=== PATIENT | male | born 1955 | race Caucasian/White ===

== ENCOUNTER 2024-05-27 10:51 | Emergency (ER) | payer MEDICARE, SELFPAY ==
[2024-05-27] VITALS (52 sets, daily range): BP systolic 95–155; BP diastolic 71–122; PULSE 84–159; RESP 11–35; TEMP 36.7; O2SAT 93–98
--- NOTE | ~2024-05-27 | XR_ITS ---
EXAMINATION: XR chest 1V portable 05/27/2024 12:12 INDICATION: Rapid heart rate PROCEDURE: AP portable chest COMPARISON: 12/29/2018 FINDINGS: The lungs are clear. The cardiomediastinal silhouette is within normal limits. There are no pleural effusions. There is no pneumothorax suspected. IMPRESSION: 1: NO ACUTE CARDIOPULMONARY DISEASE. Reviewed, dictated and finalized at location B.
--- NOTE | 2024-05-27 10:55 | ECG_ITS ---
Test Date: 2024-05-27 11:04:59 Measurements Intervals [place] Rate: 155 P: 0 TN: 0 QRS: -39 QRSD: 125 T: 268 QT: 328 QTc: 527 Interpretive Statements ATRIAL FLUTTER/TACHYCARDIA WITH RAPID VENTRICULAR RESPONSE LEFT AXIS DEVIATION [QRS AXIS < -30] SEPTAL MYOCARDIAL INFARCTION , PROBABLY OLD [40+ ms Q WAVE IN V1/V2] No previous ECG available for comparison Electronically Signed On 05-27-2024 15:24:11 CDT by Juani Michaels M.D.
[2024-05-27 11:17] LABS: Basophils Absolute Auto 0.05 K/mm3 (0.00-0.10); Basophils Percent Auto 0.6 % (0.0-1.0); Eosinophils Absolute Auto 0.26 K/mm3 (0.02-0.50); Hematocrit 43.7 % (37.0-46.0); Hemoglobin 14.1 g/dL (12.4-15.3); Immature Granulocyte Absolute 0.03 K/mm3 (0.00-0.00); Immature Granulocyte Percent A 0.3 % (0.0-0.0); Lymphocytes Absolute Auto 1.54 K/mm3 (1.10-4.50); Lymphocytes Percent Auto 17.5 % (18.0-42.0); Mean Corpuscular HGB Conc 32.3 g/dL (32-36); Mean Corpuscular Hemoglobin 29.7 pg (27.0-31.0); Mean Corpuscular Volume 92.2 fL (78.0-102.0); Mean Platelet Volume 11.4 fl (8.7-11.0); Neutrophils Absolute Auto 6.22 K/mm3 (1.70-7.20); Neutrophils Percent Auto 70.6 % (50.0-70.0); Platelet Count Result 345 K/mm3 (150-420); Red Blood Count 4.74 M/mm3 (4.70-6.10); Red Cell Distribution Width 13.4 % (11.6-14.4); White Blood Count 8.8 K/mm3 (4.8-10.8)
[2024-05-27] MEDS: ADENOSINE IV SOLN 6 MG/2 ML VIAL IV PUSH (11:41)
[2024-05-27] MEDS: ADENOSINE IV SOLN 6 MG/2 ML VIAL 12 MG IV PUSH ×2 (11:50→12:03)
[2024-05-27 11:53] LABS: Alanine Aminotransferase 19 U/L (16-63); Albumin Level 3.1 g/dL (3.4-5.0); Alkaline Phosphatase 65 U/L (46-116); Anion Gap 10 mmol/L (4-12); Aspartate Amino Transferase 13 U/L (15-37); Bilirubin,Total 0.4 mg/dL (0.00-1.00); Blood Urea Nitrogen 26 mg/dL (7-18); Calcium 8.8 mg/dL (8.5-10.1); Carbon Dioxide 24 mmol/L (21-32); Chloride 107 mmol/L (98-108); Estimated CRCL calculation 56 ml/min; Estimated Glomerular Filt Rate 39; Glucose 150 mg/dL (70-99); Osmolality Calculated 299 mOsm/kg (285-295); Potassium 4.5 mmol/L (3.5-5.1); Sodium 141 mmol/L (136-145); Thyroid Stimulating Hormone 1.21 uIU/mL (0.36-3.74); Total Protein 7.2 g/dL (6.4-8.2); Troponin I 21.2 ng/L (0.00-60.4)
[2024-05-27 11:55] LABS: NT Pro B Type Natriuretic Pept 5778 pg/mL (0-125)
[2024-05-27] MEDS: dilTIAZem HCl INJ 25 MG/5 ML VIAL 10 MG IV PUSH (12:14)
[2024-05-27 12:37] LABS: INR 1.1; Partial Thromboplastin Time 30.3 Sec (23.9-30.70); Prothrombin Time 11.7 Seconds (9.50-12.1)
[2024-05-27] MEDS: dilTIAZem 100 MG/100 ML 100 MG/100 ML BAG IV CONT (12:48)
[2024-05-27] MEDS: APIXABAN 2.5 MG TABLET 5 MG PO (12:57)
--- NOTE | 2024-05-27 13:00 | ED.ARRPALP ---
HPI - Arrhythmia/Palpitations General Chief Complaint: Arrhythmia/Palpitations Stated Complaint: elevated heart rate Time Seen by Provider: 05/27/24 10:53 Source: patient Mode of arrival: ambulatory Limitations: no limitations History of Present Illness HPI narrative: this is a 68-year-old male with history of rapid heart rate, hypertension has had a off and on issues with some palpitations and rapid heart rate followed by his primary care physician that are high recently had increased his metoprolol. The patient with the last 2 to 3 days has felt has heart rate is elevated does have a way of monitoring his heart rate and has been in the 150s, and has been sustained and decided to present to the emergency department for further evaluation. Patient denies any chest pain no shortness of breath no fever chills no abdominal pain no dysuria or hematuria. Patient he has states that he had a normal catheterization in the past, last EKG per his recollection was months ago and no raise up her mention that he has AFib and flutter rhythm. Patient denies any nausea vomiting no headache no blurry vision. MD complaint: rapid heart beat Onset (ago): day(s) Duration: intermittent Severity: severe Context: occurred during rest Associated symptoms: denies other symptoms Treatments prior to arrival: beta-sanjuanita Related Data Home Medications Medication Instructions Recorded Confirmed polyethylene glycol 3350 17 17 g PO .QOD 02/10/24 05/27/24 gram/dose oral powder (Miralax) Allergies Allergy/AdvReac Type Severity Reaction Status Date / Time No Known Allergies Allergy Verified 04/16/24 09:23 Review of Systems Review of Systems: All systems reviewed & are unremarkable except as noted in HPI and below PMFSH Past Medical History Medical History Atrial flutter 12/20 Bladder stone removed 2010 Diverticulitis 01/21 History of left heart catheterization 02/19 Social History Social History Smoking status: Never smoker Second hand tobacco smoke exposure: No Alcohol intake: never Substance use: never Substance use type: does not use Living arrangements: with family Occupation/Education: retired Gender identity (if verbalized by the patient): Male Sexual Orientation (if Verbalized by the Patient): Straight or Heterosexual Spiritual care concerns: No Agree to blood products: Yes Exam Const: General: no acute distress Nutritional Appearance: obese Orientation/consciousness: patient oriented x3 Limitations: no limitations Neck: Neck: normal visual inspection and no lymphadenopathy Resp: Effort & Inspection: normal respiratory effort Auscultation: clear to auscultation bilaterally Cardio: Rate: regular rate Rhythm: regular rhythm GI: GI Palp: Yes Soft to palpation Auscultation: normal bowel sounds : General: Yes bladder normal to palpation Skin: General skin exam: normal color Rashes: no rashes Neuro: General: patient oriented x3, moves all extremities and no meningeal signs Extrem: General: normal to inspection and no clubbing, cyanosis or edema Psych: Mental Status: mental status grossly normal Course Course Emergency Course: Patient with a rapid ventricular rate with rate of 150s did receive adenosine x3 01/14/12, and Cardizem bolus of 10mg and currently on a Cardizem drip and this is controlling his heart rate is currently between 90s and are low 100s with stable blood pressure of 126/75 after careful review of his records does show that he had an episode of A flutter, but discussing this with the patient he does not recollect him ever being told that he has a flutter rhythm. Patient is currently only taking Plavix, he is not clear as to why he is taking the Plavix, patient states that he has had a cardiac catheterization a few years ago that was normal at that time. Patient
[2024-05-27 14:33] LABS: Troponin I 23.8 ng/L (0.00-60.4)
== END 2024-05-27 16:20 | disposition short-term general hospital (02) ==
PROVIDERS: Emergency Provider Emergency Medicine; PCP Family Medicine Adolescent Medicine
DX: I48.92 Unspecified atrial flutter (principal); I48.0 Paroxysmal atrial fibrillation
CPT/HCPCS: 36415; 71045; 80053; 83880; 84443; 84484; 85025; 85610; 85730; 93005; 96365; 96366; 96375; 99285; A9270; J0153

== ENCOUNTER 2024-05-27 18:33 | Inpatient (IN) | payer MEDICARE, SELFPAY ==
[2024-05-27] VITALS (7 sets, daily range): BP systolic 105–176; BP diastolic 43–70; PULSE 110–128; RESP 22; TEMP 36.4–37; O2SAT 97–100; BMI 40.8
--- NOTE | 2024-05-27 17:41 | ADMGEN ---
This patient, Roland Valenzuela, was admitted to IMU Room 213-01 on 05/27/24 at 1703. Patient/family oriented to hospital policies and general routines including ID bracelet, bed and alarms, visiting hours, pain management, procedures, bathroom and other care routines, personal items, smoking policy, room service/diet, and visiting hours. Information on how to activate the Rapid Response Team has been discussed. Patient/Family are encouraged to report perceived risks to care and to ask questions if they do not understand what they are told or what they should do.
[2024-05-27] MEDS: dilTIAZem 100 MG/100 ML 100 MG/100 ML BAG 7.5 MG IV CONT (19:00)
--- NOTE | 2024-05-27 20:11 | P.HP_ITS ---
H&P: HPI History of Present Illness Date/Time: 05/27/24 20:11 Chief Complaint: rapid heart rate and palpitations Narrative: This is a 68-year-old male with a significant past medical history hypertension, a flutter, diverticulitis, BPH who presented initially to [facility] with complaints of palpitations and rapid heart rate. Patient reports the following history of presenting illness. He states he noticed that he was feeling woozy on Friday and then started noticing that his heart rate was elevated as he has a pulse ox it he uses to read his heart rate. On Friday of this week he called his primary care doctor Dr. Victoria and let him know that his heart rate was not controlled any more with the metoprolol. Dr. Victoria increased his dose of metoprolol to 75 mg daily. He states he picked up this prescription and only took 1 dose before he presented here for further evaluation of his symptoms. He also denies history of a flutter even though it is documented in his EMR. Patient denies Any fever, chills, nausea, vomiting, diarrhea, abdominal pain, chest pain, shortness a breath. Workup in the hospital included chest x-ray which was negative for any acute cardiopulmonary disease. Initial labs shown a creatinine of 1.75, EGFR 39, proBNP 5778, troponin I 21.2> 23.8, TSH 1.21. EKG was completed and shown atrial flutter with RVR, left axis deviation with a rate of 150, QTC 527. Patient was given a few doses of adenosine, started on Cardizem infusion at 5 mg/hr and Eliquis 5 mg b.i.d.. Review of Systems Review of Systems: All systems reviewed & are unremarkable except as noted in HPI and below Constitutional: Constitutional: Reports as per HPI and Reports no additional constitutional complaints Eyes: Eyes: Reports as per HPI and Reports no additional eye complaints ENT: Reports system reviewed and no additional complaints, except as documented and Reports as per HPI Cardiovascular: Cardiovascular: Reports as per HPI and Reports no additional cardiovascular complaints Respiratory: Respiratory: Reports as per HPI and Reports no additional respiratory complaints Gastrointestinal: Gastrointestinal: Reports as per HPI and Reports no additional gastrointestinal complaints Genitourinary: Genitourinary: Reports no additional male genitourinary complaints and Reports as per HPI Musculoskeletal: Musculoskeletal: Reports no additional musculoskeletal complaints and Reports as per HPI Integumentary/Breasts: Skin/Breast: Reports system reviewed and no additional complaints, except as docu and Reports as per HPI Neurologic: Reports system reviewed and no additional complaints, except as documented and Reports as per HPI Psychiatric: Psychiatric: Reports no additional psychiatric complaints and Reports as per HPI [facility] Past Medical History Medical History (Updated 05/27/24 @ 23:51 by Mary Mckeon APRN) Atrial flutter 12/20 Bladder stone removed 2010 BPH (benign prostatic hyperplasia) Diverticulitis 01/21 History of left heart catheterization 02/19 Hypertension Family History Family History Daughter Bipolar 1 disorder Mother Cancer Social History Social History (Updated 05/27/24 @ 23:53 by Mary Mckeon APRN) Social History: lives with , retired medicinal chemist, worked as a medicinal chemist in a chemical plant in [facility] Smoking status: Never smoker Second hand tobacco smoke exposure: No Alcohol intake: never Substance use: never Substance use type: does not use Do You Feel Safe in your Home?: Yes Lack of Transportation: No Lack of Food: Never True Current Housing: I Have Housing Concerned About Future Housing: No Difficulty Paying Gas/Electric Bills: No Difficulty Paying for Meds: No Currently Unemployed: No Education: High School Diploma/GED Difficulty w/ Childcare or Family Care: No Living arrangements: with family Occupation/Education: retired Gender identity (if verbalized by the patient): Male Sexual Orientation (if Verbalized by the Patient): Straight or Heterosexual Spiritual care concerns: No Agree to blood products: Yes Meds Home Medications and Allergies Home Medications Medication Instructions Recorded Confirmed Type clopidogrel 75 mg tablet 75 mg PO DAILY #90 tabs 07/31/23 05/27/24 Rx lisinopril 40 mg tablet 40 mg PO DAILY #90 tabs 01/27/24 05/27/24 Rx polyethylene glycol 3350 17 17 g PO DAILY Constipation 02/10/24 05/27/24 History gram/dose oral powder (Miralax) tamsulosin 0.4 mg capsule 0.4 mg PO DAILY #90 caps 02/10/24 05/27/24 Rx metoprolol succinate 50 mg 75 mg PO DAILY #45 tabs 05/24/24 05/27/24 Rx tablet,extended release 24 hr omega-3 fatty acids 3,000 mg PO DAILY 05/27/24 05/27/24 History Allergies Allergy/AdvReac Type Severity Reaction Status Date / Time No Known Allergies Allergy Verified 04/16/24 09:23 Vital Signs Vital Signs - 24 hr 05/27/24 17:32 05/27/24 18:00 05/27/24 17:04 Temperature 98.6 F Pulse Rate 111 H 110 H Respiratory Rate Blood Pressure 148/69 H Pulse Oximetry 100 Oxygen Delivery Room Air 05/27/24 17:13 05/27/24 19:51 Temperature 97.6 F Pulse Rate 115 H 123 H Respiratory Rate 22 H Blood Pressure 176/70 H Pulse Oximetry 97 Oxygen Delivery Exam Narrative: General: In no acute distress, well nourished Head: atraumatic, no encephalopathy Eyes: PERRLA, sclera clear ENT: moist mucous membranes, nasal passages clear Neck: supple, no JVD, no adenopathy, trachea midline Cardiac: Normal S1 and S2. a flutter on heart monitor, No murmur, gallops or friction rubs, peripheral pulses intact. Respiratory: Lungs clear to auscultation, no adventitious lung sounds, currently on room air Gastrointestinal: soft, non-distended, non-tender, normoactive bowel sounds. : voiding without difficulty. Extremities: moves all extremities well, no edema, good ROM, strength 5/5 Skin: clean, dry, intact. No wounds or lesions. Neuro: Alert and oriented x4, cranial nerves intact, no neuro deficits. Psych: normal mood, normal affect, interactive Assessment and Plan Assessment and plan (1) Atrial flutter with rapid ventricular response: Code(s): I48.92 - Unspecified atrial flutter Status: Acute Assessment and Plan: - presented initially to [facility] with complaints palpitation and rapid heart rate. He was found to be in a flutter with RVR with a rate of 155 . Patient does have a history of a flutter in the EMR however he denies history of a flutter. * Metoprolol on hold * Cardizem infusion initiated and currently infusing at 7.5 milligram/hour * cardiology consulted * admitted to IMU status * continuous telemetry monitoring * troponin flat x2 * chest x-ray was negative for any acute cardiopulmonary disease * heart healthy diet (2) Essential (primary) hypertension: Code(s): I10 - Essential (primary) hypertension Status: Acute Assessment and Plan: * blood pressure ranging 122/78 to 176/70 * lisinopril on hold due to YESSICA * hydralazine ordered PRN for systolic greater than 160 (3) Benign prostatic hyperplasia with lower urinary tract symptoms: Code(s): N40.1 - Benign prostatic hyperplasia with lower urinary tract symptoms Status: Acute Assessment and Plan: * continue tamsulosin (4) Acute kidney injury: Code(s): N17.9 - Acute kidney failure, unspecified Status: Acute Assessment and Plan: * creatinine initially 1.75, EGFR 39 * baseline creatinine appears to be 1.15-1.17, EGFR >60 * continue to trend * hold nephrotoxic medications * lisinopril on hold Quality VTE Prophylaxis VTE prophylaxis: pharmacologic ordered Hospitalist MIPS Advance Care Plan I have confirmed that the patient's Advanced Care Plan is present, code status is documented, or surrogate decision maker is listed in patient medical record.: Yes Medication Reconciliation I have utilized all available resources to obtain, update and review the patients current medications (includes all prescriptions, OTC, herbals, cannabis, and nutritional supplements).: Yes
[2024-05-27] MEDS: APIXABAN 5 MG TABLET PO (23:06)
[2024-05-28] VITALS (22 sets, daily range): BP systolic 101–142; BP diastolic 43–95; PULSE 56–162; RESP 14–22; TEMP 36.3–37.3; O2SAT 94–98
[2024-05-28 05:07] LABS: Basophils Absolute Auto 0.1 K/mm3 (0.0-0.1); Basophils Percent Auto 0.6 % (0.2-1.2); Eosinophils Absolute Auto 0.3 K/mm3 (0-0.3); Hemoglobin 14.1 g/dL (14.0-18.0); Immature Granulocyte Absolute 0.04 K/mm3 (0.00-0.031); Immature Granulocyte Percent A 0.5 % (0-0.5); Lymphocytes Absolute Auto 1.75 K/mm3 (0.9-3.2); Lymphocytes Percent Auto 21.1 % (18.3-44.2); Mean Corpuscular HGB Conc 31.3 g/dl (32-36); Mean Corpuscular Hemoglobin 29.4 pg (26-34); Mean Corpuscular Volume 93.8 fl (80-100); Mean Platelet Volume 11.3 fl (7.4-10.4); Monocytes Absolute Auto 0.8 K/mm3 (0.1-0.6); Monocytes Percent Auto 9.8 % (2.6-8.5); Neutrophils Absolute Auto 5.3 K/mm3 (1.3-6.7); Platelet Count Result 323 k/mm3 (150-375); Red Cell Distribution Width 13.6 % (11.5-14.5); White Blood Count 8.3 K/mm3 (4.5-10.0)
[2024-05-28 05:18] LABS: Hemoglobin A1C 6.3 % (<5.7)
[2024-05-28 05:19] LABS: Alanine Aminotransferase 16 U/L (6-50); Albumin Level 3.9 g/dL (3.5-5.1); Alkaline Phosphatase 61 U/L (38-126); Anion Gap 9 mmol/L (4-12); Aspartate Amino Transferase 17 U/L (17-59); Bilirubin,Total 0.6 mg/dL (0.2-1.3); Blood Urea Nitrogen 23 mg/dL (9-20); Calcium 9.1 mg/dL (8.4-10.2); Carbon Dioxide 23 mmol/L (22-30); Chloride 107 mmol/L (98-107); Estimated CRCL calculation 65 ml/min; Estimated Glomerular Filt Rate 46; Glucose 109 mg/dL (65-110); Potassium 4.4 mmol/L (3.4-5.0); Sodium 139 mmol/L (137-145)
[2024-05-28] MEDS: dilTIAZem 100 MG/100 ML 100 MG/100 ML BAG 10 MG IV CONT (06:00)
[2024-05-28] MEDS: TAMSULOSIN HCL 0.4 MG CAPSULE PO (08:50)
[2024-05-28] MEDS: CLOPIDOGREL BISULFATE 75 MG TABLET PO (08:50)
[2024-05-28] MEDS: APIXABAN 5 MG TABLET PO ×2 (08:50→20:27)
--- NOTE | 2024-05-28 10:03 | P.PNIM_ITS ---
Progress Note: A&P Assessment and Plan (1) Atrial flutter with rapid ventricular response: Code(s): I48.92 - Unspecified atrial flutter Status: Inactive Assessment and Plan: - presented initially to [facility] with complaints palpitation and rapid heart rate. He was found to be in a flutter with RVR with a rate of 155 . Patient does have a history of a flutter in the EMR however he denies history of a flutter. * Metoprolol on hold * Cardizem infusion initiated and currently infusing at 7.5 milligram/hour * cardiology consulted and following records * admitted to IMU status * continuous telemetry monitoring * troponin flat x2 * chest x-ray was negative for any acute cardiopulmonary disease * heart healthy diet (2) Essential (primary) hypertension: Code(s): I10 - Essential (primary) hypertension Status: Acute Assessment and Plan: * blood pressure ranging 122/78 to 176/70 * lisinopril on hold due to YESSICA * hydralazine ordered PRN for systolic greater than 160 (3) Benign prostatic hyperplasia with lower urinary tract symptoms: Code(s): N40.1 - Benign prostatic hyperplasia with lower urinary tract symptoms Status: Acute Assessment and Plan: * continue tamsulosin (4) Acute kidney injury: Code(s): N17.9 - Acute kidney failure, unspecified Status: Acute Assessment and Plan: * creatinine initially 1.75, EGFR 39 * baseline creatinine appears to be 1.15-1.17, EGFR >60 * continue to trend * hold nephrotoxic medications * lisinopril on hold Subjective Date/time seen: 05/28/24 10:03 Interval history: Admitted for Atrial flutter, currently on Cardizem drip.Patient underwent cardiac catheterization 5 years ago but denies any significant finding . Denies any cardiac stent placement or CABG. When asked about why he is taking aspirin and Brilinta, patient reports his primary care physician advised him to take blood thinner which he does not want to take at the time and settled for Brilinta. Patient was yesterday started on Eliquis 5 mg p.o. b.i.d. during the admission and we believe it has been started due to his Ramón Vasc score of 3. Today we discontinued his Brilinta. Cardiology was consulted planning to do cardioversion if necessary. Review of Systems Review of Systems: All systems reviewed & are unremarkable except as noted in HPI and below Constitutional: Constitutional: Reports as per HPI and Reports no additional constitutional complaints Eyes: Eyes: Reports as per HPI and Reports no additional eye complaints ENT: Reports system reviewed and no additional complaints, except as documented and Reports as per HPI Cardiovascular: Cardiovascular: Reports as per HPI and Reports no additional cardiovascular complaints Respiratory: Respiratory: Reports as per HPI and Reports no additional respiratory complaints Gastrointestinal: Gastrointestinal: Reports as per HPI and Reports no additional gastrointestinal complaints Genitourinary: Genitourinary: Reports no additional male genitourinary complaints and Reports as per HPI Musculoskeletal: Musculoskeletal: Reports no additional musculoskeletal complaints and Reports as per HPI Integumentary/Breasts: Skin/Breast: Reports system reviewed and no additional complaints, except as docu and Reports as per HPI Neurologic: Reports system reviewed and no additional complaints, except as documented and Reports as per HPI Psychiatric: Psychiatric: Reports no additional psychiatric complaints and Rep orts as per HPI Exam Narrative: General: In no acute distress, well nourished Head: atraumatic, no encephalopathy Eyes: PERRLA, sclera clear ENT: moist mucous membranes, nasal passages clear Neck: supple, no JVD, no adenopathy, trachea midline Cardiac: Normal S1 and S2. a flutter on heart monitor, No murmur, gallops or friction rubs, peripheral pulses intact. Respiratory: Lungs clear to auscultation, no adventitious lung sounds, currently on room air Gastrointestinal: soft, non-distended, non-tender, normoactive bowel sounds. : voiding without difficulty. Extremities: moves all extremities well, no edema, good ROM, strength 5/5 Skin: clean, dry, intact. No wounds or lesions. Neuro: Alert and oriented x4, cranial nerves intact, no neuro deficits. Psych: normal mood, normal affect, interactive Objective Data Vital Signs Vital Signs: Vital Signs - 24 hr 05/27/24 17:32 05/27/24 18:00 05/27/24 17:04 Temperature 98.6 F Pulse Rate 111 H 110 H Respiratory Rate Blood Pressure 148/69 H Pulse Oximetry 100 Oxygen Delivery Room Air 05/27/24 17:13 05/27/24 19:51 05/27/24 20:00 Temperature 97.6 F Pulse Rate 115 H 123 H 117 H Respiratory Rate 22 H Blood Pressure 176/70 H Pulse Oximetry 97 Oxygen Delivery 05/27/24 20:00 05/27/24 22:00 05/27/24 19:00 Temperature Pulse Rate 117 H 125 H 128 H Respiratory Rate 22 H Blood Pressure Pulse Oximetry 97 Oxygen Delivery Room Air 05/28/24 00:17 05/28/24 00:00 05/28/24 00:00 Temperature 98.4 F Pulse Rate 101 H 124 H 124 H Respiratory Rate 22 H 22 H Blood Pressure 105/43 L Pulse Oximetry 98 98 Oxygen Delivery Room Air 05/27/24 22:00 05/28/24 00:00 05/28/24 02:00 Temperature Pulse Rate 125 H 124 H 82 Respiratory Rate Blood Pressure 105/43 L 106/45 L Pulse Oximetry Oxygen Delivery 05/28/24 02:00 05/28/24 02:00 05/28/24 04:00 Temperature 98.1 F Pulse Rate 82 82 82 Respiratory Rate 18 18 Blood Pressure 101/52 L 101/52 L 123/81 Pulse Oximetry 97 97 Oxygen Delivery 05/28/24 04:00 05/28/24 04:00 05/28/24 04:00 Temperature Pulse Rate 81 81 81 Respiratory Rate 18 Blood Pressure Pulse Oximetry 97 Oxygen Delivery Room Air 05/28/24 05:35 05/28/24 06:00 05/28/24 06:00 Temperature Pulse Rate 82 81 Respiratory Rate Blood Pressure 141/88 H Pulse Oximetry Oxygen Delivery 05/28/24 06:00 05/28/24 08:00 05/28/24 08:00 Temperature 98.7 F Pulse Rate 81 56 L 106 H Respiratory Rate 14 Blood Pressure 128/72 Pulse Oximetry 97 Oxygen Delivery 05/28/24 08:00 05/28/24 10:00 Temperature Pulse Rate 87 85 Respiratory Rate Blood Pressure Pulse Oximetry Oxygen Delivery Intake/Output Intake/Output: Intake & Output 05/25/24 05/26/24 05/27/24 05/28/24 23:59 23:59 23:59 23:59 Intake Total 22.5 355 Output Total 500 Balance 22.5 -145 Meds/Results Medications: Active Medications Generic Name Dose Route Start Last Admin Trade Name Freq PRN Reason Stop Dose Admin Acetaminophen 650 mg 05/27/24 17:48 Acetaminophen 325 Mg Tablet PO Q4H PRN Mild Pain (1-3) or Fever Apixaban 5 mg 05/27/24 21:00 05/28/24 08:50 Apixaban 5 Mg Tablet PO 5 mg Q12HR JAYLEN Administration Clopidogrel Bisulfate 75 mg 05/28/24 09:00 05/28/24 08:50 Clopidogrel Bisulfate 75 Mg Tablet PO 75 mg DAILY JAYLEN Administration Hydralazine HCl 10 mg 05/27/24 23:54 Hydralazine Hcl 20 Mg/Ml Vial IV PUSH Q8H PRN Blood Pressure - High Diltiazem HCl 100 mg in 100 mls @ 10 mls/hr 05/27/24 17:55 05/28/24 10:00 Cardizem 100 Mg/100 Ml IV CONT 10 mg/hr .Q10H JAYLEN 10 mls/hr Infusion 10 MG/HR Ondansetron HCl 4 mg 05/27/24 17:48 Ondansetron Inj 4 Mg/2 Ml Vial IV PUSH Q6H PRN Nausea And Vomiting Polyethylene Glycol 17 gm 05/28/24 09:00 05/28/24 08:51 Polyethylene Glycol 3350 17 Gm Powd.Pack PO Not Given DAILY [facility] Tamsulosin HCl 0.4 mg 05/28/24 09:00 05/28/24 08:50 Tamsulosin Hcl 0.4 Mg Capsule PO 0.4 mg DAILY JAYLEN Administration Labs Labs: Laboratory Results - last 24 hr 05/28/24 04:45 WBC 8.3 RBC 4.80 Hgb 14.1 Hct 45.0 MCV 93.8 MCH 29.4 MCHC 31.3 L RDW 13.6 Plt Count 323 MPV 11.3 H Immature Gran % (Auto) 0.5 Neut % (Auto) 64.0 Lymph % (Auto) 21.1 [place] % (Auto) 9.8 H Eos % (Auto) 4.0 Baso % (Auto) 0.6 Lymph # (Auto) 1.75 [place] # (Auto) 0.8 H Eos # (Auto) 0.3 Baso # (Auto) 0.1 Abs Immat Gran (auto) 0.04 H Absolute Neuts (auto) 5.3 Absolute Nucleated RBC 0.000 Nucleated RBC % 0.0 Sodium 139 Potassium 4.4 Chloride 107 Carbon Dioxide 23 Anion Gap 9 BUN 23 H Creatinine 1.50 H Estim Creat Clear Calc 65 Estimated GFR 46 L Glucose 109 Hemoglobin A1c 6.3 H Calcium 9.1 Total Bilirubin 0.6 AST 17 ALT 16 Alkaline Phosphatase 61 Total Protein 7.0 Albumin 3.9 Quality VTE Prophylaxis VTE prophylaxis: pharmacologic ordered Hospitalist MIPS Advance Care Plan I have confirmed that the patient's Advanced Care Plan is present, code status is documented, or surrogate decision maker is listed in patient medical record.: Yes Medication Reconciliation I have utilized all available resources to obtain, update and review the patients current medications (includes all prescriptions, OTC, herbals, cannabis, and nutritional supplements).: Yes
--- NOTE | 2024-05-28 10:13 | P.CONCA_ITS ---
Assessment and Plan Assessment and plan (1) Paroxysmal atrial fibrillation: Code(s): I48.0 - Paroxysmal atrial fibrillation Status: Acute Assessment and Plan: This is not a new diagnosis, patient reports being diagnosed ~10 years ago, but his record indicates he was diagnosed in 2019. Unclear if he has been rate controlled or if he has been in sinus rhythm. No previous EKGs available for review. * Will attempt to restore sinus rhythm with HARMEET/DCCV with anesthesia hopefully today * Check apnea link if he remains admitted overnight * Continue diltiazem for now * If DCCV attempt is not successful, we will discuss plan for rate control * Continue anticoagulation with Eliquis 5mg b.i.d. (2) Essential (primary) hypertension: Code(s): I10 - Essential (primary) hypertension Status: Acute Assessment and Plan: Stable. Continue lisinopril History of Present Illness History of Present Illness Consult date/time: 05/28/24 10:13 Requesting physician: Mary Mckeon APRN Consult reason: atrial fibrillation Reason For Visit: A flutter with RVR Narrative: Roland Valenzuela is a 68 year old male with atrial flutter who presented to the hospital because he noted his heart rate to be elevated on his home pulse oximeter. He was instructed by his primary care doctor to take an additional dose of metoprolol and proceed to the emergency department. He states he was initially diagnosed with atrial flutter ~10 years ago but cannot remember exactly when. At that time, a cardioversion was planned but for reasons he is unsure of, he did not undergo cardioversion and was managed with medication instead. He does not know if he spontaneously converted or if he has been rate controlled. He does not feel symptoms with the tachycardia but he does report feeling funny for about a week. 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 [facility] Smoking status: Never smoker Second hand tobacco smoke exposure: No Alcohol intake: never Substance use: never Substance use type: does not use Do You Feel Safe in your Home?: Yes Lack of Transportation: No Lack of Food: Never True Current Housing: I Have Housing Concerned About Future Housing: No Difficulty Paying Gas/Electric Bills: No Difficulty Paying for Meds: No Currently Unemployed: No Education: High School Diploma/GED Difficulty w/ Childcare or Family Care: No Living arrangements: with family Occupation/Education: retired Gender identity (if verbalized by the patient): Male Sexual Orientation (if Verbalized by the Patient): Straight or Heterosexual Spiritual care concerns: No Agree to blood products: Yes Meds Home Medications and Allergies Home Medications Medication Instructions Recorded Confirmed Type clopidogrel 75 mg tablet 75 mg PO DAILY #90 tabs 07/31/23 05/27/24 Rx lisinopril 40 mg tablet 40 mg PO DAILY #90 tabs 01/27/24 05/27/24 Rx polyethylene glycol 3350 17 17 g PO DAILY Constipation 02/10/24 05/27/24 History gram/dose oral powder (Miralax) tamsulosin 0.4 mg capsule 0.4 mg PO DAILY #90 caps 02/10/24 05/27/24 Rx metoprolol succinate 50 mg 75 mg PO DAILY #45 tabs 05/24/24 05/27/24 Rx tablet,extended release 24 hr omega-3 fatty acids 3,000 mg PO DAILY 05/27/24 05/27/24 History Allergies Allergy/AdvReac Type Severity Reaction Status Date / Time No Known Allergies Allergy Verified 04/16/24 09:23 Vital Signs Vital Signs - 24 hr 05/27/24 17:32 05/27/24 18:00 05/27/24 17:04 Temperature 37.0 C Pulse Rate 111 H 110 H Respiratory Rate Blood Pressure 148/69 H Pulse Oximetry 100 Oxygen Delivery Room Air 05/27/24 17:13 05/27/24 19:51 05/27/24 20:00 Temperature 36.4 C Pulse Rate 115 H 123 H 117 H Respiratory Rate 22 H Blood Pressure 176/70 H Pulse Oximetry 97 Oxygen Delivery 05/27/24 20:00 05/27/24 22:00 05/27/24 19:00 Temperature Pulse Rate 117 H 125 H 128 H Respiratory Rate 22 H Blood Pressure Pulse Oximetry 97 Oxygen Delivery Room Air 05/28/24 00:17 05/28/24 00:00 05/28/24 00:00 Temperature 36.9 C Pulse Rate 101 H 124 H 124 H Respiratory Rate 22 H 22 H Blood Pressure 105/43 L Pulse Oximetry 98 98 Oxygen Delivery Room Air 05/27/24 22:00 05/28/24 00:00 05/28/24 02:00 Temperature Pulse Rate 125 H 124 H 82 Respiratory Rate Blood Pressure 105/43 L 106/45 L Pulse Oximetry Oxygen Delivery 05/28/24 02:00 05/28/24 02:00 05/28/24 04:00 Temperature 36.7 C Pulse Rate 82 82 82 Respiratory Rate 18 18 Blood Pressure 101/52 L 101/52 L 123/81 Pulse Oximetry 97 97 Oxygen Delivery 05/28/24 04:00 05/28/24 04:00 05/28/24 04:00 Temperature Pulse Rate 81 81 81 Respiratory Rate 18 Blood Pressure Pulse Oximetry 97 Oxygen Delivery Room Air 05/28/24 05:35 05/28/24 06:00 05/28/24 06:00 Temperature Pulse Rate 82 81 Respiratory Rate Blood Pressure 141/88 H Pulse Oximetry Oxygen Delivery 05/28/24 06:00 05/28/24 08:00 05/28/24 08:00 Temperature 37.1 C Pulse Rate 81 56 L 106 H Respiratory Rate 14 Blood Pressure 128/72 Pulse Oximetry 97 Oxygen Delivery 05/28/24 08:00 05/28/24 10:00 05/28/24 10:00 Temperature 36.8 C Pulse Rate 87 85 56 L Respiratory Rate 18 Blood Pressure 142/90 H Pulse Oximetry 98 Oxygen Delivery Exam Const: General: comfortable, no acute distress, alert and awake Orientation/consciousness: patient oriented x3 Other: Morbidly obese HENMT: Head: normal to inspection Eyes: General: appearance normal, both eyes and all related structures Pupils: Equal, round and reactive pupils present Neck: Neck: normal visual inspection and supple Carotids: normal carotid upstroke Resp: Effort & Inspection: normal respiratory effort Auscultation: clear to auscultation bilaterally Cardio: Rate: tachycardic Rhythm: abnormal rhythm Heart sounds: S1 normal heart sound present, S2 normal heart sound present and no murmurs GI: Auscultation: normal bowel sounds Skin: General skin exam: normal color Neuro: General: patient oriented x3 Cranial nerves: Yes Equal, round and reactive pupils present Extrem: General: normal to inspection Psych: Appearance: grossly normal Mental Status: mental status grossly n ormal Results Labs and Meds 05/28/24 04:45 05/28/24 04:45 Lab results: Cardiac Enzymes 05/28/24 Range/Units 04:45 AST 17 (17-59) U/L CBC 05/28/24 Range/Units 04:45 WBC 8.3 (4.5-10.0) K/mm3 RBC 4.80 (4.6-6.20) M/mm3 Hgb 14.1 (14.0-18.0) g/dL Hct 45.0 (42.0-52.0) % Plt Count 323 (150-375) k/mm3 Lymph # (Auto) 1.75 (0.9-3.2) K/mm3 [place] # (Auto) 0.8 H (0.1-0.6) K/mm3 Eos # (Auto) 0.3 (0-0.3) K/mm3 Baso # (Auto) 0.1 (0.0-0.1) K/mm3 Comprehensive Metabolic Panel 05/28/24 Range/Units 04:45 Sodium 139 (137-145) mmol/L Potassium 4.4 (3.4-5.0) mmol/L Chloride 107 (98-107) mmol/L Carbon Dioxide 23 (22-30) mmol/L BUN 23 H (9-20) mg/dL Creatinine 1.50 H (0.7-1.3) mg/dL Glucose 109 (65-110) mg/dL Calcium 9.1 (8.4-10.2) mg/dL AST 17 (17-59) U/L ALT 16 (6-50) U/L Alkaline Phosphatase 61 (38-126) U/L Total Protein 7.0 (6.3-8.2) g/dL Albumin 3.9 (3.5-5.1) g/dL Intake and Output 05/27/24 05/28/24 05/28/24 23:59 07:59 15:59 Intake Total 22.5 315 40 Output Total 500 Balance 22.5 -185 40 Intake: IV 22.5 75 40 dilTIAZem 100 MG/100 ML 100 mg 22.5 75 40 In 100 ml @ 10 MG/HR 10 mls/hr IV CONT .Q10H [facility] Rx#:[id number] Oral 240 Output: Urine 500 Patient Weight 05/28/24 23:59 Weight 150.6 kg
[2024-05-28] MEDS: METOPROLOL TARTRATE 25 MG TABLET PO ×3 (12:34→22:23)
[2024-05-28] MEDS: SODIUM CHLORIDE 0.9% IV 1,000 ML 60 ML IV CONT (13:30)
[2024-05-28] MEDS: dilTIAZem 100 MG/100 ML 100 MG/100 ML BAG 15 MG IV CONT (16:38)
[2024-05-28] MEDS: ACETAMINOPHEN 325 MG TABLET 650 MG PO (23:09)
--- NOTE | 2024-05-28 23:54 | PC.NURSE ---
IV access lost and attempted reinsertion twice by this RN and 2 times by Kane RN with ultrasound and 2 times by MARIA DOLORES Christie. Unable to regain PIV access. Cardizem drip and fluids placed on hold. Dr. Steel paged at 2330 and awaiting response at this time. Patient heart rate 150 and patient asymptomatic. Will continue to monitor.
[2024-05-29] VITALS (24 sets, daily range): BP systolic 95–153; BP diastolic 50–93; PULSE 55–157; RESP 12–20; TEMP 36.3–37.2; O2SAT 95–99
--- NOTE | 2024-05-29 00:20 | PC.NURSE ---
Dr. Steel returned phone call at 0018. Updated of patient condition and heart rate in the 140's and loss of PIV access. No new orders at this time. Will reevaluate in AM and continue to monitor for now.
[2024-05-29] MEDS: METOPROLOL TARTRATE 25 MG TABLET PO ×4 (05:40→23:00)
[2024-05-29 06:03] LABS: Basophils Absolute Auto 0.1 K/mm3 (0.0-0.1); Basophils Percent Auto 0.5 % (0.2-1.2); Eosinophils Absolute Auto 0.3 K/mm3 (0-0.3); Hematocrit 43.9 % (42.0-52.0); Immature Granulocyte Absolute 0.04 K/mm3 (0.00-0.031); Immature Granulocyte Percent A 0.4 % (0-0.5); Lymphocytes Absolute Auto 1.89 K/mm3 (0.9-3.2); Lymphocytes Percent Auto 18.9 % (18.3-44.2); Mean Corpuscular HGB Conc 31.9 g/dl (32-36); Mean Corpuscular Volume 94.2 fl (80-100); Mean Platelet Volume 11.1 fl (7.4-10.4); Monocytes Absolute Auto 1.2 K/mm3 (0.1-0.6); Monocytes Percent Auto 11.7 % (2.6-8.5); Neutrophils Absolute Auto 6.5 K/mm3 (1.3-6.7); Neutrophils Percent Auto 65.5 % (45.5-73.1); Platelet Count Result 310 k/mm3 (150-375); Red Blood Count 4.66 M/mm3 (4.6-6.20); Red Cell Distribution Width 13.6 % (11.5-14.5)
[2024-05-29 06:14] LABS: Alanine Aminotransferase 15 U/L (6-50); Albumin Level 3.9 g/dL (3.5-5.1); Alkaline Phosphatase 59 U/L (38-126); Anion Gap 11 mmol/L (4-12); Aspartate Amino Transferase 16 U/L (17-59); Bilirubin,Total 1.2 mg/dL (0.2-1.3); Blood Urea Nitrogen 21 mg/dL (9-20); Calcium 8.6 mg/dL (8.4-10.2); Carbon Dioxide 22 mmol/L (22-30); Chloride 107 mmol/L (98-107); Estimated CRCL calculation 69 ml/min; Estimated Glomerular Filt Rate 50; Glucose 117 mg/dL (65-110); Potassium 4.4 mmol/L (3.4-5.0); Sodium 140 mmol/L (137-145)
[2024-05-29] MEDS: CLOPIDOGREL BISULFATE 75 MG TABLET PO (09:01)
[2024-05-29] MEDS: TAMSULOSIN HCL 0.4 MG CAPSULE PO (09:02)
[2024-05-29] MEDS: APIXABAN 5 MG TABLET PO ×2 (09:02→20:19)
--- NOTE | 2024-05-29 10:26 | P.PNIM_ITS ---
Progress Note: A&P Assessment and Plan (1) Atrial flutter with rapid ventricular response: Code(s): I48.92 - Unspecified atrial flutter Status: Inactive Assessment and Plan: - presented initially to [facility] with complaints palpitation and rapid heart rate. He was found to be in a flutter with RVR with a rate of 155 . Patient does have a history of a flutter in the EMR however he denies history of a flutter. * Metoprolol on hold * Cardizem infusion initiated and currently infusing at 7.5 milligram/hour * cardiology consulted * continuous telemetry monitoring * troponin flat x2 * chest x-ray was negative for any acute cardiopulmonary disease * heart healthy diet * Plan HARMEET cardioversion 10/01 (2) Essential (primary) hypertension: Code(s): I10 - Essential (primary) hypertension Status: Acute Assessment and Plan: * 05/29 BP 95/61 (3) Benign prostatic hyperplasia with lower urinary tract symptoms: Code(s): N40.1 - Benign prostatic hyperplasia with lower urinary tract symptoms Status: Acute Assessment and Plan: * continue tamsulosin (4) Acute kidney injury: Code(s): N17.9 - Acute kidney failure, unspecified Status: Acute Assessment and Plan: * admission creatinine initially 1.75, EGFR 39 * baseline creatinine appears to be 1.15-1.17, EGFR >60 * continue to trend * hold nephrotoxic medications * lisinopril on hold * 05/29 creatinine 1.4 Subjective Date/time seen: 05/29/24 10:26 Interval history: Denied chest pain or shortness of breath or swelling. Denied GI or issues. Denied abnormal bleeding. Denied palpitations or dizziness. Denied focal weakness. Tolerating diet. Review of Systems Review of Systems: All systems reviewed & are unremarkable except as noted in HPI and below Exam Narrative: HEENT: EOMI, sclerae nonicteric, pharyngeal mucosa pink and intact NECK: No JV CHEST: Clear to auscultation. Normal effort. HEART: NL S1/S2, irregularly irregular rhythm, mildly tachycardic. ABDOMEN: BS+, soft, nontender, no mass, no bruits EXTREMITIES: No cyanosis, edema, or clubbing NEUROLOGIC: CN intact and symmetric to inspection. MUSCULOSKELETAL: Tone and strength symmetric. PSYCH: Alert. Oriented to person, place, and time. Objective Data Vital Signs Vital Signs: Vital Signs - 24 hr 05/28/24 12:00 05/28/24 12:34 05/28/24 14:00 Temperature 98.9 F 97.4 F L Pulse Rate 95 111 H 162 H Respiratory Rate 16 18 Blood Pressure 115/81 115/95 H Pulse Oximetry 98 98 Oxygen Delivery 05/28/24 14:37 05/28/24 15:56 05/28/24 12:00 Temperature 98.2 F Pulse Rate 162 H 103 H Respiratory Rate 18 18 Blood Pressure 115/95 H 138/68 Pulse Oximetry 98 94 Oxygen Delivery Room Air Room Air 05/28/24 12:00 05/28/24 14:00 05/28/24 16:38 Temperature Pulse Rate 114 H 98 117 H Respiratory Rate Blood Pressure Pulse Oximetry Oxygen Delivery 05/28/24 16:38 05/28/24 16:38 05/28/24 16:00 Temperature Pulse Rate 132 H 117 H 122 H Respiratory Rate Blood Pressure Pulse Oximetry Oxygen Delivery 05/28/24 16:00 05/28/24 18:00 05/28/24 19:53 Temperature 99.1 F Pulse Rate 86 84 Respiratory Rate 20 Blood Pressure 112/64 Pulse Oximetry 97 Oxygen Delivery Room Air 05/28/24 20:30 05/28/24 20:30 05/28/24 22:22 Temperature Pulse Rate 84 86 113 H Respiratory Rate 20 Blood Pressure 112/64 Pulse Oximetry 97 Oxygen Delivery Room Air 05/28/24 22:23 05/28/24 20:00 05/28/24 22:00 Temperature Pulse Rate 113 H 82 156 H Respiratory Rate Blood Pressure Pulse Oximetry Oxygen Delivery 05/28/24 20:30 05/29/24 00:00 05/29/24 00:00 Temperature 99 F Pulse Rate 157 H 148 H Respiratory Rate 20 Blood Pressure 108/88 Pulse Oximetry 97 97 Oxygen Delivery Room Air 05/29/24 00:00 05/29/24 02:00 05/29/24 04:00 Temperature Pulse Rate 149 H 148 H 148 H Respiratory Rate 20 Blood Pressure Pulse Oximetry 97 Oxygen Delivery Room Air 05/29/24 04:00 05/29/24 02:00 05/29/24 04:00 Temperature Pulse Rate 154 H 150 H 154 H Respiratory Rate Blood Pressure Pulse Oximetry Oxygen Delivery 05/29/24 05:40 05/29/24 06:00 05/29/24 06:00 Temperature Pulse Rate 146 H 154 H 153 H Respiratory Rate Blood Pressure Pulse Oximetry Oxygen Delivery 05/29/24 04:00 05/29/24 06:57 05/29/24 08:00 Temperature 97.4 F L Pulse Rate 153 H 155 H 154 H Respiratory Rate 18 Blood Pressure 106/55 L 106/55 L Pulse Oximetry 98 Oxygen Delivery 05/29/24 08:00 Temperature 97.9 F Pulse Rate 157 H Respiratory Rate 12 Blood Pressure 95/61 L Pulse Oximetry 96 Oxygen Delivery Intake/Output Intake/Output: Intake & Output 05/26/24 05/27/24 05/28/24 05/29/24 23:59 23:59 23:59 23:59 Intake Total 22.5 1924 400 Output Total 225 1900 900 Balance -202.5 24 -500 Meds/Results Medications: Active Medications Generic Name Dose Route Start Last Admin Trade Name Freq PRN Reason Stop Dose Admin Acetaminophen 650 mg 05/27/24 17:48 05/28/24 23:09 Acetaminophen 325 Mg Tablet PO 650 mg Q4H PRN Administration Mild Pain (1-3) or Fever Apixaban 5 mg 05/27/24 21:00 05/29/24 09:02 Apixaban 5 Mg Tablet PO 5 mg Q12HR JAYLEN Administration Clopidogrel Bisulfate 75 mg 05/28/24 09:00 05/29/24 09:01 Clopidogrel Bisulfate 75 Mg Tablet PO 75 mg DAILY JAYLEN Administration Hydralazine HCl 10 mg 05/27/24 23:54 Hydralazine Hcl 20 Mg/Ml Vial IV PUSH Q8H PRN Blood Pressure - High Diltiazem HCl 100 mg in 100 mls @ 15 mls/hr 05/27/24 17:55 05/29/24 06:57 Cardizem 100 Mg/100 Ml IV CONT 15 mg/hr .Q6H40M JAYLEN 15 mls/hr Infusion 15 MG/HR Sodium Chloride 1,000 mls @ 60 mls/hr 05/28/24 11:30 05/29/24 06:57 Normal Saline Iv IV CONT 60 mls/hr .[id number] JAYLEN Infusion Metoprolol Tartrate 25 mg 05/28/24 11:00 05/29/24 05:40 Metoprolol Tartrate 25 Mg Tablet PO 25 mg Q6H JAYLEN Administration Metoprolol Tartrate 5 mg 05/28/24 15:27 Metoprolol Tartrate Inj 5 Mg/5 Ml Vial IV PUSH Q2H PRN Tachycardia Ondansetron HCl 4 mg 05/27/24 17:48 Ondansetron Inj 4 Mg/2 Ml Vial IV PUSH Q6H PRN Nausea And Vomiting Polyethylene Glycol 17 gm 05/28/24 09:00 05/29/24 09:04 Polyethylene Glycol 3350 17 Gm Powd.Pack PO Not Given DAILY [facility] Tamsulosin HCl 0.4 mg 05/28/24 09:00 05/29/24 09:02 Tamsulosin Hcl 0.4 Mg Capsule PO 0.4 mg DAILY JAYLEN Administration Labs Labs: Laboratory Results - last 24 hr 05/29/24 05:58 WBC 10.0 RBC 4.66 Hgb 14.0 Hct 43.9 MCV 94.2 MCH 30.0 MCHC 31.9 L RDW 13.6 Plt Count 310 MPV 11.1 H Immature Gran % (Auto) 0.4 Neut % (Auto) 65.5 Lymph % (Auto) 18.9 [place] % (Auto) 11.7 H Eos % (Auto) 3.0 Baso % (Auto) 0.5 Lymph # (Auto) 1.89 [place] # (Auto) 1.2 H Eos # (Auto) 0.3 Baso # (Auto) 0.1 Abs Immat Gran (auto) 0.04 H Absolute Neuts (auto) 6.5 Absolute Nucleated RBC 0.000 Nucleated RBC % 0.0 Sodium 140 Potassium 4.4 Chloride 107 Carbon Dioxide 22 Anion Gap 11 BUN 21 H Creatinine 1.40 H Estim Creat Clear Calc 69 Estimated GFR 50 L Glucose 117 H Calcium 8.6 Total Bilirubin 1.2 AST 16 L ALT 15 Alkaline Phosphatase 59 Total Protein 7.0 Albumin 3.9
[2024-05-29] MEDS: dilTIAZem 100 MG/100 ML 100 MG/100 ML BAG 15 MG IV CONT ×3 (10:37→20:19)
--- NOTE | 2024-05-29 11:40 | P.PNCA_ITS ---
Progress Note: A&P Assessment and Plan (1) Paroxysmal atrial fibrillation: Code(s): I48.0 - Paroxysmal atrial fibrillation Status: Acute Assessment and Plan: He is in atrial flutter with variable response. Heart rate now controlled with diltiazem and metoprolol. Being anticoagulated with Eliquis and this should be continued. This is not a new diagnosis, patient reports being diagnosed ~10 years ago, but his record indicates he was diagnosed in 2019. Unclear if he has been rate controlled or if he has been in sinus rhythm. No previous EKGs available for review. * Will attempt to restore sinus rhythm with HARMEET/DCCV on Friday * * Continue diltiazem for now * If DCCV attempt is not successful, we will discuss plan for rate control * Continue anticoagulation with Eliquis 5mg b.i.d. (2) Essential (primary) hypertension: Code(s): I10 - Essential (primary) hypertension Status: Acute Assessment and Plan: Stable. 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 Has a chads Vasc score of at least 2 given age and hypertension (4) Acute kidney injury: Code(s): N17.9 - Acute kidney failure, unspecified Status: Acute Assessment and Plan: Per hospitalist Subjective Date/time seen: 05/29/24 11:40 Interval history: 68-year-old admitted for tachycardia. Date of service 05/29/2024: His IV infiltrated last night. Several hours without an IV. During that time he was tachycardic but tolerated it well. Now has an IV again in diltiazem drip reinstituted. Heart rate is much better controlled. Otherwise feels fine and denies any chest pain or shortness of breath. Review of Systems Review of Systems: All systems reviewed & are unremarkable except as noted in HPI and below Constitutional: Constitutional: Denies chills Eyes: Eyes: Denies blurry vision ENT: Reports Normal hearing present Cardiovascular: Cardiovascular: Denies chest pain and Denies diaphoresis Respiratory: Respiratory: Denies dyspnea Gastrointestinal: Gastrointestinal: Denies abdominal pain Genitourinary: Genitourinary: Denies hematuria Musculoskeletal: Musculoskeletal: Denies back pain Integumentary/Breasts: Skin/Breast: Denies dry skin Neurologic: Denies Abnormal speech present Psychiatric: Psychiatric: Denies anxiety Endocrine: Endocrine: Denies change in body appearance Hematologic/Lymphatic: Hematologic/Lymphatic: Denies easy bleeding Allergic/Immunologic: Allergic/Immunologic: Denies GI upset with certain foods Exam Narrative: Appears stated age Const: General: comfortable, no acute distress, alert and awake Other: Morbidly obese HENMT: Head: normal to inspection Face/Nose/Sinus: Normal nares present Eyes: General: appearance normal, both eyes and all related structures Sclera: sclerae normal Neck: Neck: normal visual inspection and supple Carotids: normal carotid upstroke Resp: Effort & Inspection: normal respiratory effort Auscultation: clear to auscultation bilaterally Cardio: Rate: tachycardic Rhythm: abnormal rhythm Heart sounds: S1 normal heart sound present, S2 normal heart sound present and no murmurs GI: Auscultation: normal bowel sounds Skin: General skin exam: normal color Neuro: General: patient oriented x3 Speech: normal speech Extrem: General: normal to inspection Psych: Appearance: grossly normal Mental Status: mental status grossly normal Objective Data Vital Signs Vital Signs: Vital Signs - 24 hr 05/28/24 12:00 05/28/24 12:34 05/28/24 14:00 Temperature 37.2 C 36.3 C L Pulse Rate 95 111 H 162 H Respiratory Rate 16 18 Blood Pressure 115/81 115/95 H Pulse Oximetry 98 98 Oxygen Delivery 05/28/24 14:37 05/28/24 15:56 05/28/24 12:00 Temperature 36.8 C Pulse Rate 162 H 103 H Respiratory Rate 18 18 Blood Pressure 115/95 H 138/68 Pulse Oximetry 98 94 Oxygen Delivery Room Air Room Air 05/28/24 12:00 05/28/24 14:00 05/28/24 16:38 Temperature Pulse Rate 114 H 98 117 H Respiratory Rate Blood Pressure Pulse Oximetry Oxygen Delivery 05/28/24 16:38 05/28/24 16:38 05/28/24 16:00 Temperature Pulse Rate 132 H 117 H 122 H Respiratory Rate Blood Pressure Pulse Oximetry Oxygen Delivery 05/28/24 16:00 05/28/24 18:00 05/28/24 19:53 Temperature 37.3 C Pulse Rate 86 84 Respiratory Rate 20 Blood Pressure 112/64 Pulse Oximetry 97 Oxygen Delivery Room Air 05/28/24 20:30 05/28/24 20:30 05/28/24 22:22 Temperature Pulse Rate 84 86 113 H Respiratory Rate 20 Blood Pressure 112/64 Pulse Oximetry 97 Oxygen Delivery Room Air 05/28/24 22:23 05/28/24 20:00 05/28/24 22:00 Temperature Pulse Rate 113 H 82 156 H Respiratory Rate Blood Pressure Pulse Oximetry Oxygen Delivery 05/28/24 20:30 05/29/24 00:00 05/29/24 00:00 Temperature 37.2 C Pulse Rate 157 H 148 H Respiratory Rate 20 Blood Pressure 108/88 Pulse Oximetry 97 97 Oxygen Delivery Room Air 05/29/24 00:00 05/29/24 02:00 05/29/24 04:00 Temperature Pulse Rate 149 H 148 H 148 H Respiratory Rate 20 Blood Pressure Pulse Oximetry 97 Oxygen Delivery Room Air 05/29/24 04:00 05/29/24 02:00 05/29/24 04:00 Temperature Pulse Rate 154 H 150 H 154 H Respiratory Rate Blood Pressure Pulse Oximetry Oxygen Delivery 05/29/24 05:40 05/29/24 06:00 05/29/24 06:00 Temperature Pulse Rate 146 H 154 H 153 H Respiratory Rate Blood Pressure Pulse Oximetry Oxygen Delivery 05/29/24 04:00 05/29/24 06:57 05/29/24 08:00 Temperature 36.3 C L Pulse Rate 153 H 155 H 154 H Respiratory Rate 18 Blood Pressure 106/55 L 106/55 L Pulse Oximetry 98 Oxygen Delivery 05/29/24 08:00 05/29/24 09:45 05/29/24 10:37 Temperature 36.6 C Pulse Rate 157 H 80 94 Respiratory Rate 12 Blood Pressure 95/61 L 115/60 115/60 Pulse Oximetry 96 Oxygen Delivery 05/29/24 08:00 05/29/24 10:57 Temperature Pulse Rate 157 H 82 Respiratory Rate Blood Pressure Pulse Oximetry Oxygen Delivery Intake/Output Intake/Output: Intake & Output 05/26/24 05/27/24 05/28/24 05/29/24 23:59 23:59 23:59 23:59 Intake Total 22.5 1924 442.0 Output Total 225 1900 900 Balance -202.5 24 -458.0 Meds/Results Medications: Active Medications Generic Name Dose Route Start Last Admin Trade Name Freq PRN Reason Stop Dose Admin Acetaminophen 650 mg 05/27/24 17:48 05/28/24 23:09 Acetaminophen 325 Mg Tablet PO 650 mg Q4H PRN Administration Mild Pain (1-3) or Fever Apixaban 5 mg 05/27/24 21:00 05/29/24 09:02 Apixaban 5 Mg Tablet PO 5 mg Q12HR JAYLEN Administration Clopidogrel Bisulfate 75 mg 05/28/24 09:00 05/29/24 09:01 Clopidogrel Bisulfate 75 Mg Tablet PO 75 mg DAILY JAYLEN Administration Hydralazine HCl 10 mg 05/27/24 23:54 Hydralazine Hcl 20 Mg/Ml Vial IV PUSH Q8H PRN Blood Pressure - High Diltiazem HCl 100 mg in 100 mls @ 15 mls/hr 05/27/24 17:55 05/29/24 10:37 Cardizem 100 Mg/100 Ml IV CONT 15 mg/hr .Q6H40M JAYLEN 15 mls/hr Administration 15 MG/HR Sodium Chloride 1,000 mls @ 60 mls/hr 05/28/24 11:30 05/29/24 06:57 Normal Saline Iv IV CONT 60 mls/hr .[id number] JAYLEN Infusion Metoprolol Tartrate 25 mg 05/28/24 11:00 05/29/24 10:57 Metoprolol Tartrate 25 Mg Tablet PO 25 mg Q6H JAYLEN Administration Metoprolol Tartrate 5 mg 05/28/24 15:27 Metoprolol Tartrate Inj 5 Mg/5 Ml Vial IV PUSH Q2H PRN Tachycardia Ondansetron HCl 4 mg 05/27/24 17:48 Ondansetron Inj 4 Mg/2 Ml Vial IV PUSH Q6H PRN Nausea And Vomiting Polyethylene Glycol 17 gm 05/28/24 09:00 05/29/24 09:04 Polyethylene Glycol 3350 17 Gm Powd.Pack PO Not Given DAILY [facility] Tamsulosin HCl 0.4 mg 05/28/24 09:00 05/29/24 09:02 Tamsulosin Hcl 0.4 Mg Capsule PO 0.4 mg DAILY JAYLEN Administration Labs Labs: Laboratory Results - last 24 hr 05/29/24 05:58 WBC 10.0 RBC 4.66 Hgb 14.0 Hct 43.9 MCV 94.2 MCH 30.0 MCHC 31.9 L RDW 13.6 Plt Count 310 MPV 11.1 H Immature Gran % (Auto) 0.4 Neut % (Auto) 65.5 Lymph % (Auto) 18.9 [place] % (Auto) 11.7 H Eos % (Auto) 3.0 Baso % (Auto) 0.5 Lymph # (Auto) 1.89 [place] # (Auto) 1.2 H Eos # (Auto) 0.3 Baso # (Auto) 0.1 Abs Immat Gran (auto) 0.04 H Absolute Neuts (auto) 6.5 Absolute Nucleated RBC 0.000 Nucleated RBC % 0.0 Sodium 140 Potassium 4.4 Chloride 107 Carbon Dioxide 22 Anion Gap 11 BUN 21 H Creatinine 1.40 H Estim Creat Clear Calc 69 Estimated GFR 50 L Glucose 117 H Calcium 8.6 Total Bilirubin 1.2 AST 16 L ALT 15 Alkaline Phosphatase 59 Total Protein 7.0 Albumin 3.9
[2024-05-29] MEDS: ACETAMINOPHEN 325 MG TABLET 650 MG PO (14:28)
[2024-05-29] MEDS: SODIUM CHLORIDE 0.9% IV 1,000 ML 60 ML IV CONT (16:57)
[2024-05-30] VITALS (29 sets, daily range): BP systolic 103–150; BP diastolic 60–90; PULSE 71–93; RESP 14–24; TEMP 36.5–37.1; O2SAT 96–100
[2024-05-30] MEDS: dilTIAZem 100 MG/100 ML 100 MG/100 ML BAG 15 MG IV CONT ×4 (03:41→23:37)
[2024-05-30 04:59] LABS: Basophils Percent Auto 0.4 % (0.2-1.2); Eosinophils Absolute Auto 0.3 K/mm3 (0-0.3); Eosinophils Percent Auto 3.8 % (0-4.4); Hematocrit 41.8 % (42.0-52.0); Hemoglobin 13.3 g/dL (14.0-18.0); Immature Granulocyte Absolute 0.03 K/mm3 (0.00-0.031); Immature Granulocyte Percent A 0.4 % (0-0.5); Lymphocytes Absolute Auto 1.38 K/mm3 (0.9-3.2); Lymphocytes Percent Auto 17.4 % (18.3-44.2); Mean Corpuscular HGB Conc 31.8 g/dl (32-36); Mean Corpuscular Hemoglobin 29.8 pg (26-34); Mean Corpuscular Volume 93.7 fl (80-100); Mean Platelet Volume 11.1 fl (7.4-10.4); Monocytes Absolute Auto 0.9 K/mm3 (0.1-0.6); Monocytes Percent Auto 11.5 % (2.6-8.5); Neutrophils Absolute Auto 5.3 K/mm3 (1.3-6.7); Neutrophils Percent Auto 66.5 % (45.5-73.1); Platelet Count Result 277 k/mm3 (150-375); Red Blood Count 4.46 M/mm3 (4.6-6.20); Red Cell Distribution Width 13.5 % (11.5-14.5); White Blood Count 7.9 K/mm3 (4.5-10.0)
[2024-05-30 05:17] LABS: Alanine Aminotransferase 14 U/L (6-50); Albumin Level 3.6 g/dL (3.5-5.1); Alkaline Phosphatase 51 U/L (38-126); Anion Gap 9 mmol/L (4-12); Aspartate Amino Transferase 16 U/L (17-59); Bilirubin,Total 0.9 mg/dL (0.2-1.3); Blood Urea Nitrogen 20 mg/dL (9-20); Calcium 8.3 mg/dL (8.4-10.2); Carbon Dioxide 23 mmol/L (22-30); Chloride 106 mmol/L (98-107); Estimated CRCL calculation 69 ml/min; Estimated Glomerular Filt Rate 50; Glucose 108 mg/dL (65-110); Potassium 4.2 mmol/L (3.4-5.0); Sodium 138 mmol/L (137-145)
[2024-05-30] MEDS: METOPROLOL TARTRATE 25 MG TABLET PO ×3 (05:53→20:36)
--- NOTE | 2024-05-30 09:31 | P.PNIM_ITS ---
Progress Note: A&P Assessment and Plan (1) Atrial flutter with rapid ventricular response: Code(s): I48.92 - Unspecified atrial flutter Status: Inactive Assessment and Plan: - presented initially to [facility] with complaints palpitation and rapid heart rate. He was found to be in a flutter with RVR with a rate of 155 . Patient does have a history of a flutter in the EMR however he denies history of a flutter. * Metoprolol on hold * Cardizem infusion initiated and currently infusing at 7.5 milligram/hour * cardiology consulted * continuous telemetry monitoring * troponin flat x2 * chest x-ray was negative for any acute cardiopulmonary disease * heart healthy diet * Plan HARMEET cardioversion 10/01 (2) Essential (primary) hypertension: Code(s): I10 - Essential (primary) hypertension Status: Acute Assessment and Plan: * 05/29 BP 95/61, 05/30 134/87 (3) Benign prostatic hyperplasia with lower urinary tract symptoms: Code(s): N40.1 - Benign prostatic hyperplasia with lower urinary tract symptoms Status: Acute Assessment and Plan: * continue tamsulosin (4) Acute kidney injury: Code(s): N17.9 - Acute kidney failure, unspecified Status: Acute Assessment and Plan: * admission creatinine initially 1.75, EGFR 39 * baseline creatinine appears to be 1.15-1.17, EGFR >60 * continue to trend * hold nephrotoxic medications * lisinopril on hold * 05/29 creatinine 1.4, 05/30 1.4 Subjective Date/time seen: 05/30/24 09:31 Interval history: Denied chest pain or shortness of breath or swelling. Denied GI or issues. Denied abnormal bleeding. Denied palpitations or dizziness. Denied focal weakness. Tolerating diet. Review of Systems Review of Systems: All systems reviewed & are unremarkable except as noted in HPI and below Exam Narrative: HEENT: EOMI, sclerae nonicteric, pharyngeal mucosa pink and intact NECK: No JV CHEST: Clear to auscultation. Normal effort. HEART: NL S1/S2, irregularly irregular rhythm, mildly tachycardic. ABDOMEN: BS+, soft, nontender, no mass, no bruits EXTREMITIES: No cyanosis, edema, or clubbing NEUROLOGIC: CN intact and symmetric to inspection. MUSCULOSKELETAL: Tone and strength symmetric. PSYCH: Alert. Oriented to person, place, and time. Objective Data Vital Signs Vital Signs: Vital Signs - 24 hr 05/29/24 09:45 05/29/24 10:37 05/29/24 10:57 Temperature Pulse Rate 80 94 82 Respiratory Rate Blood Pressure 115/60 115/60 Pulse Oximetry Oxygen Delivery 05/29/24 12:00 05/29/24 12:00 05/29/24 14:19 Temperature 97.6 F Pulse Rate 91 81 77 Respiratory Rate 20 Blood Pressure 115/60 Pulse Oximetry 99 Oxygen Delivery 05/29/24 14:19 05/29/24 14:00 05/29/24 16:20 Temperature 98.1 F Pulse Rate 77 78 85 Respiratory Rate 16 Blood Pressure 118/59 L 118/59 L Pulse Oximetry 98 Oxygen Delivery 05/29/24 17:14 05/29/24 17:15 05/29/24 16:00 Temperature 98.0 F Pulse Rate 111 H 84 55 L Respiratory Rate 16 Blood Pressure 153/93 H 153/93 H Pulse Oximetry 99 Oxygen Delivery 05/29/24 18:00 05/29/24 20:00 05/29/24 20:19 Temperature 98.0 F 97.8 F Pulse Rate 71 80 80 Respiratory Rate 20 18 Blood Pressure 119/73 119/83 119/83 Pulse Oximetry 96 97 Oxygen Delivery 05/29/24 20:19 05/29/24 20:00 05/29/24 20:00 Temperature Pulse Rate 80 80 103 H Respiratory Rate Blood Pressure 119/83 Pulse Oximetry 97 Oxygen Delivery Room Air 05/29/24 22:00 05/29/24 22:00 05/29/24 22:59 Temperature 97.8 F Pulse Rate 82 82 83 Respiratory Rate 18 Blood Pressure 102/50 L 102/50 L 128/83 Pulse Oximetry 95 Oxygen Delivery 05/29/24 23:00 05/29/24 23:00 05/29/24 22:00 Temperature Pulse Rate 86 86 83 Respiratory Rate Blood Pressure 128/83 Pulse Oximetry Oxygen Delivery 05/29/24 23:54 05/29/24 23:57 05/30/24 00:00 Temperature 98.8 F Pulse Rate 80 80 Respiratory Rate 18 Blood Pressure 137/78 Pulse Oximetry 96 Oxygen Delivery Room Air 05/30/24 00:00 05/30/24 01:55 05/30/24 02:00 Temperature Pulse Rate 80 78 79 Respiratory Rate Blood Pressure 137/78 126/80 Pulse Oximetry Oxygen Delivery 05/30/24 03:00 05/30/24 03:41 05/30/24 04:00 Temperature 98.8 F Pulse Rate 82 82 77 Respiratory Rate 20 Blood Pressure 116/64 Pulse Oximetry 97 Oxygen Delivery 05/30/24 04:00 05/30/24 02:00 05/30/24 04:00 Temperature Pulse Rate 77 79 77 Respiratory Rate Blood Pressure 126/80 116/64 Pulse Oximetry Oxygen Delivery 05/30/24 04:00 05/30/24 05:53 05/30/24 05:50 Temperature Pulse Rate 80 80 Respiratory Rate 16 Blood Pressure 115/80 Pulse Oximetry 100 Oxygen Delivery Room Air 05/30/24 05:59 05/30/24 06:00 05/30/24 08:00 Temperature 98.2 F Pulse Rate 84 80 93 Respiratory Rate 16 Blood Pressure 115/80 134/87 Pulse Oximetry 97 Oxygen Delivery Intake/Output Intake/Output: Intake & Output 05/27/24 05/28/24 05/29/24 05/30/24 23:59 23:59 23:59 23:59 Intake Total 22.5 1924 2629.7 1074.6 Output Total 225 1900 2100 725 Balance -202.5 24 529.7 349.6 Meds/Results Medications: Active Medications Generic Name Dose Route Start Last Admin Trade Name Freq PRN Reason Stop Dose Admin Acetaminophen 650 mg 05/27/24 17:48 05/29/24 14:28 Acetaminophen 325 Mg Tablet PO 650 mg Q4H PRN Administration Mild Pain (1-3) or Fever Apixaban 5 mg 05/27/24 21:00 05/29/24 20:19 Apixaban 5 Mg Tablet PO 5 mg Q12HR JAYLEN Administration Clopidogrel Bisulfate 75 mg 05/28/24 09:00 05/29/24 09:01 Clopidogrel Bisulfate 75 Mg Tablet PO 75 mg DAILY JAYLEN Administration Hydralazine HCl 10 mg 05/27/24 23:54 Hydralazine Hcl 20 Mg/Ml Vial IV PUSH Q8H PRN Blood Pressure - High Diltiazem HCl 100 mg in 100 mls @ 15 mls/hr 05/27/24 17:55 05/30/24 06:00 Cardizem 100 Mg/100 Ml IV CONT 15 mg/hr .Q6H40M JAYLEN 15 mls/hr Infusion 15 MG/HR Sodium Chloride 1,000 mls @ 60 mls/hr 05/28/24 11:30 05/29/24 20:00 Normal Saline Iv IV CONT 60 mls/hr .[id number] JAYLEN Infusion Metoprolol Tartrate 25 mg 05/28/24 11:00 05/30/24 05:53 Metoprolol Tartrate 25 Mg Tablet PO 25 mg Q6H JAYLEN Administration Metoprolol Tartrate 5 mg 05/28/24 15:27 Metoprolol Tartrate Inj 5 Mg/5 Ml Vial IV PUSH Q2H PRN Tachycardia Ondansetron HCl 4 mg 05/27/24 17:48 Ondansetron Inj 4 Mg/2 Ml Vial IV PUSH Q6H PRN Nausea And Vomiting Polyethylene Glycol 17 gm 05/28/24 09:00 05/29/24 09:04 Polyethylene Glycol 3350 17 Gm Powd.Pack PO Not Given DAILY JAYLEN Tamsulosin HCl 0.4 mg 05/28/24 09:00 05/29/24 09:02 Tamsulosin Hcl 0.4 Mg Capsule PO 0.4 mg DAILY JAYLEN Administration Labs Labs: Laboratory Results - last 24 hr 05/30/24 04:36 WBC 7.9 RBC 4.46 L Hgb 13.3 L Hct 41.8 L MCV 93.7 MCH 29.8 MCHC 31.8 L RDW 13.5 Plt Count 277 MPV 11.1 H Immature Gran % (Auto) 0.4 Neut % (Auto) 66.5 Lymph % (Auto) 17.4 L [place]ake % (Auto) 11.5 H Eos % (Auto) 3.8 Baso % (Auto) 0.4 Lymph # (Auto) 1.38 [place]ake # (Auto) 0.9 H Eos # (Auto) 0.3 Baso # (Auto) 0.0 Abs Immat Gran (auto) 0.03 Absolute Neuts (auto) 5.3 Absolute Nucleated RBC 0.000 Nucleated RBC % 0.0 Sodium 138 Potassium 4.2 Chloride 106 Carbon Dioxide 23 Anion Gap 9 BUN 20 Creatinine 1.40 H Estim Creat Clear Calc 69 Estimated GFR 50 L Glucose 108 Calcium 8.3 L Total Bilirubin 0.9 AST 16 L ALT 14 Alkaline Phosphatase 51 Total Protein 7.0 Albumin 3.6
[2024-05-30] MEDS: SODIUM CHLORIDE 0.9% IV 1,000 ML 60 ML IV CONT (09:32)
[2024-05-30] MEDS: TAMSULOSIN HCL 0.4 MG CAPSULE PO (09:34)
[2024-05-30] MEDS: CLOPIDOGREL BISULFATE 75 MG TABLET PO (09:34)
[2024-05-30] MEDS: APIXABAN 5 MG TABLET PO ×2 (09:34→20:36)
--- NOTE | 2024-05-30 12:46 | P.PNCA_ITS ---
Progress Note: A&P Assessment and Plan (1) Paroxysmal atrial fibrillation: Code(s): I48.0 - Paroxysmal atrial fibrillation Status: Acute Assessment and Plan: He is in atrial flutter with variable response. Heart rate now controlled with diltiazem and metoprolol. Being anticoagulated with Eliquis and this should be continued. This is not a new diagnosis, patient reports being diagnosed ~10 years ago, but his record indicates he was diagnosed in 2019. Unclear if he has been rate controlled or if he has been in sinus rhythm. No previous EKGs available for review. * Will attempt to restore sinus rhythm with HARMEET/DCCV on Friday * NPO after midnight * Continue diltiazem for now * If DCCV attempt is not successful, we will discuss plan for rate control * Continue anticoagulation with Eliquis 5mg b.i.d. Will reduce his metoprolol to 25 mg p.o. q.12 hours. Will transition back to long-acting metoprolol upon discharge. (2) Essential (primary) hypertension: Code(s): I10 - Essential (primary) hypertension Status: Acute Assessment and Plan: Stable. Continue lisinopril (3) Chronic anticoagulation: Code(s): Z79.01 - buttermaker (current) use of anticoagulants Status: Acute Assessment and Plan: Continue Eliquis. Has a chads Vasc score of at least 2 given age and hypertension (4) Acute kidney injury: Code(s): N17.9 - Acute kidney failure, unspecified Status: Acute Assessment and Plan: Per hospitalist Subjective Date/time seen: 05/30/24 12:46 Interval history: 68-year-old admitted for tachycardia. Date of service 05/29/2024: His IV infiltrated last night. Several hours without an IV. During that time he was tachycardic but tolerated it well. Now has an IV again in diltiazem drip reinstituted. Heart rate is much better controlled. Otherwise feels fine and denies any chest pain or shortness of breath. Date of service 05/30/2024: He has no chest pain, shortness of breath. Heart rate control but does increase significantly with activity Review of Systems Review of Systems: All systems reviewed & are unremarkable except as noted in HPI and below Constitutional: Constitutional: Denies chills Eyes: Eyes: Denies blurry vision ENT: Reports Normal hearing present Cardiovascular: Cardiovascular: Denies chest pain, Denies diaphoresis and Denies dyspnea Respiratory: Respiratory: Denies dyspnea Gastrointestinal: Gastrointestinal: Denies abdominal pain Genitourinary: Genitourinary: Denies hematuria Musculoskeletal: Musculoskeletal: Denies back pain Integumentary/Breasts: Skin/Breast: Denies dry skin Neurologic: Reports Normal hearing present and Denies Abnormal speech present Psychiatric: Psychiatric: Denies anxiety Endocrine: Endocrine: Denies change in body appearance Hematologic/Lymphatic: Hematologic/Lymphatic: Denies easy bleeding Allergic/Immunologic: Allergic/Immunologic: Denies GI upset with certain foods Exam Narrative: Appears stated age Const: General: comfortable, no acute distress, alert and awake Orientation/consciousness: patient oriented x3 Other: Morbidly obese HENMT: Head: normal to inspection Face/Nose/Sinus: Normal nares present Eyes: General: appearance normal, both eyes and all related structures Sclera: sclerae normal Pupils: Equal, round and reactive pupils present Neck: Neck: normal visual inspection and supple Carotids: normal carotid upstroke Resp: Effort & Inspection: normal respiratory effort Auscultation: clear to auscultation bilaterally Cardio: Rate: tachycardic Rhythm: abnormal rhythm Heart sounds: S1 normal heart sound present, S2 normal heart sound present and no murmurs GI: Auscultation: normal bowel sounds Skin: General skin exam: normal color Neuro: General: patient oriented x3 Cranial nerves: Yes Equal, round and reactive pupils present and Yes Normal hearing present Speech: normal speech and No Abnormal speech present Extrem: General: normal to inspection Psych: Appearance: grossly normal Mental Status: mental status grossly normal Objective Data Vital Signs Vital Signs: Vital Signs - 24 hr 05/29/24 14:19 05/29/24 14:19 05/29/24 14:00 Temperature 36.7 C Pulse Rate 77 77 78 Respiratory Rate 16 Blood Pressure 118/59 L 118/59 L Pulse Oximetry 98 Oxygen Delivery 05/29/24 16:20 05/29/24 17:14 05/29/24 17:15 Temperature Pulse Rate 85 111 H 84 Respiratory Rate Blood Pressure 153/93 H Pulse Oximetry Oxygen Delivery 05/29/24 16:00 05/29/24 18:00 05/29/24 20:00 Temperature 36.7 C 36.7 C 36.6 C Pulse Rate 55 L 71 80 Respiratory Rate 16 20 18 Blood Pressure 153/93 H 119/73 119/83 Pulse Oximetry 99 96 97 Oxygen Delivery 05/29/24 20:19 05/29/24 20:19 05/29/24 20:00 Temperature Pulse Rate 80 80 80 Respiratory Rate Blood Pressure 119/83 119/83 Pulse Oximetry 97 Oxygen Delivery Room Air 05/29/24 20:00 05/29/24 22:00 05/29/24 22:00 Temperature 36.6 C Pulse Rate 103 H 82 82 Respiratory Rate 18 Blood Pressure 102/50 L 102/50 L Pulse Oximetry 95 Oxygen Delivery 05/29/24 22:59 05/29/24 23:00 05/29/24 23:00 Temperature Pulse Rate 83 86 86 Respiratory Rate Blood Pressure 128/83 128/83 Pulse Oximetry Oxygen Delivery 05/29/24 22:00 05/29/24 23:54 05/29/24 23:57 Temperature 37.1 C Pulse Rate 83 80 Respiratory Rate 18 Blood Pressure 137/78 Pulse Oximetry 96 Oxygen Delivery Room Air 05/30/24 00:00 05/30/24 00:00 05/30/24 01:55 Temperature Pulse Rate 80 80 78 Respiratory Rate Blood Pressure 137/78 126/80 Pulse Oximetry Oxygen Delivery 05/30/24 02:00 05/30/24 03:00 05/30/24 03:41 Temperature Pulse Rate 79 82 82 Respiratory Rate Blood Pressure Pulse Oximetry Oxygen Delivery 05/30/24 04:00 05/30/24 04:00 05/30/24 02:00 Temperature 37.1 C Pulse Rate 77 77 79 Respiratory Rate 20 Blood Pressure 116/64 126/80 Pulse Oximetry 97 Oxygen Delivery 05/30/24 04:00 05/30/24 04:00 05/30/24 05:53 Temperature Pulse Rate 77 80 Respiratory Rate Blood Pressure 116/64 Pulse Oximetry Oxygen Delivery Room Air 05/30/24 05:50 05/30/24 05:59 05/30/24 06:00 Temperature Pulse Rate 80 84 80 Respiratory Rate 16 Blood Pressure 115/80 115/80 Pulse Oximetry 100 Oxygen Delivery 05/30/24 08:00 05/30/24 08:00 05/30/24 10:15 Temperature 36.8 C Pulse Rate 93 93 84 Respiratory Rate 16 Blood Pressure 134/87 134/87 108/76 Pulse Oximetry 97 Oxygen Delivery 05/30/24 10:21 05/30/24 10:30 05/30/24 12:08 Temperature Pulse Rate 88 88 89 Respiratory Rate Blood Pressure Pulse Oximetry Oxygen Delivery 05/30/24 12:00 05/30/24 08:00 05/30/24 10:00 Temperature 36.5 C Pulse Rate 82 80 84 Respiratory Rate 16 Blood Pressure 103/60 Pulse Oximetry 99 Oxygen Delivery 05/30/24 12:00 Temperature Pulse Rate 78 Respiratory Rate Blood Pressure Pulse Oximetry Oxygen Delivery Intake/Output Intake/Output: Intake & Output 05/27/24 05/28/24 05/29/24 05/30/24 23:59 23:59 23:59 23:59 Intake Total 22.5 1924 2629.7 1951.8 Output Total 225 1900 2100 725 Balance -202.5 24 529.7 1226.8 Meds/Results Medications: Active Medications Generic Name Dose Route Start Last Admin Trade Name Freq PRN Reason Stop Dose Admin Acetaminophen 650 mg 05/27/24 17:48 05/29/24 14:28 Acetaminophen 325 Mg Tablet PO 650 mg Q4H PRN Administration Mild Pain (1-3) or Fever Apixaban 5 mg 05/27/24 21:00 05/30/24 09:34 Apixaban 5 Mg Tablet PO 5 mg Q12HR JAYLEN Administration Clopidogrel Bisulfate 75 mg 05/28/24 09:00 05/30/24 09:34 Clopidogrel Bisulfate 75 Mg Tablet PO 75 mg DAILY JAYLEN Administration Hydralazine HCl 10 mg 05/27/24 23:54 Hydralazine Hcl 20 Mg/Ml Vial IV PUSH Q8H PRN Blood Pressure - High Diltiazem HCl 100 mg in 100 mls @ 15 mls/hr 05/27/24 17:55 05/30/24 10:30 Cardizem 100 Mg/100 Ml IV CONT 15 mg/hr .Q6H40M JAYLEN 15 mls/hr Administration 15 MG/HR Sodium Chloride 1,000 mls @ 60 mls/hr 05/28/24 11:30 05/30/24 09:32 Normal Saline Iv IV CONT 60 mls/hr .[id number] JAYLEN Administration Metoprolol Tartrate 25 mg 05/28/24 11:00 05/30/24 12:08 Metoprolol Tartrate 25 Mg Tablet PO 25 mg Q6H JAYLEN Administration Metoprolol Tartrate 5 mg 05/28/24 15:27 Metoprolol Tartrate Inj 5 Mg/5 Ml Vial IV PUSH Q2H PRN Tachycardia Ondansetron HCl 4 mg 05/27/24 17:48 Ondansetron Inj 4 Mg/2 Ml Vial IV PUSH Q6H PRN Nausea And Vomiting Polyethylene Glycol 17 gm 05/28/24 09:00 05/30/24 09:34 Polyethylene Glycol 3350 17 Gm Powd.Pack PO Not Given DAILY [facility] Tamsulosin HCl 0.4 mg 05/28/24 09:00 05/30/24 09:34 Tamsulosin Hcl 0.4 Mg Capsule PO 0.4 mg DAILY JAYLEN Administration Labs Labs: Laboratory Results - last 24 hr 05/30/24 04:36 WBC 7.9 RBC 4.46 L Hgb 13.3 L Hct 41.8 L MCV 93.7 MCH 29.8 MCHC 31.8 L RDW 13.5 Plt Count 277 MPV 11.1 H Immature Gran % (Auto) 0.4 Neut % (Auto) 66.5 Lymph % (Auto) 17.4 L [place] % (Auto) 11.5 H Eos % (Auto) 3.8 Baso % (Auto) 0.4 Lymph # (Auto) 1.38 [place] # (Auto) 0.9 H Eos # (Auto) 0.3 Baso # (Auto) 0.0 Abs Immat Gran (auto) 0.03 Absolute Neuts (auto) 5.3 Absolute Nucleated RBC 0.000 Nucleated RBC % 0.0 Sodium 138 Potassium 4.2 Chloride 106 Carbon Dioxide 23 Anion Gap 9 BUN 20 Creatinine 1.40 H Estim Creat Clear Calc 69 Estimated GFR 50 L Glucose 108 Calcium 8.3 L Total Bilirubin 0.9 AST 16 L ALT 14 Alkaline Phosphatase 51 Total Protein 7.0 Albumin 3.6
--- NOTE | 2024-05-30 16:03 | WPDANESEPP ---
Anes - Eval Pre Procedure Procedure: Operation Date: 05/31/24 09:30 Proposed Procedures p Trans Esophageal Echo - Rk Burdick MD s Electrical Cardioversion - Rk Burdick MD Date/Time: 05/30/24 16:03 Pre Op Diagnosis: A flutter with RVR Patient Data Age: 68 Gender: M Height: 1.91 m Weight: 151.6 kg Last Vital Signs Temp 36.7 C 05/30/24 14:00 Pulse 87 05/30/24 14:00 Resp 16 05/30/24 14:00 BP 138/90 05/30/24 14:00 Pulse Ox 100 05/30/24 14:00 O2 Del Method Room Air 05/30/24 12:00 Allergies Allergy/AdvReac Type Severity Reaction Status Date / Time No Known Allergies Allergy Verified 04/16/24 09:23 Home Medications Medication Instructions Recorded Confirmed Type clopidogrel 75 mg tablet 75 mg PO DAILY #90 tabs 07/31/23 05/27/24 Rx lisinopril 40 mg tablet 40 mg PO DAILY #90 tabs 01/27/24 05/27/24 Rx polyethylene glycol 3350 17 17 g PO DAILY Constipation 02/10/24 05/27/24 History gram/dose oral powder (Miralax) tamsulosin 0.4 mg capsule 0.4 mg PO DAILY #90 caps 02/10/24 05/27/24 Rx metoprolol succinate 50 mg 75 mg PO DAILY #45 tabs 05/24/24 05/27/24 Rx tablet,extended release 24 hr omega-3 fatty acids 3,000 mg PO DAILY 05/27/24 05/27/24 History Laboratory Tests 05/30/24 04:36 WBC 7.9 K/mm3 (4.5-10.0) RBC 4.46 L M/mm3 (4.6-6.20) Hgb 13.3 L g/dL (14.0-18.0) Hct 41.8 L % (42.0-52.0) MCV 93.7 fl (80-100) MCH 29.8 pg (26-34) MCHC 31.8 L g/dl (32-36) RDW 13.5 % (11.5-14.5) Plt Count 277 k/mm3 (150-375) MPV 11.1 H fl (7.4-10.4) Immature Gran % (Auto) 0.4 % (0-0.5) Neut % (Auto) 66.5 % (45.5-73.1) Lymph % (Auto) 17.4 L % (18.3-44.2) Burnett % (Auto) 11.5 H % (2.6-8.5) Eos % (Auto) 3.8 % (0-4.4) Baso % (Auto) 0.4 % (0.2-1.2) Lymph # (Auto) 1.38 K/mm3 (0.9-3.2) Burnett # (Auto) 0.9 H K/mm3 (0.1-0.6) Eos # (Auto) 0.3 K/mm3 (0-0.3) Baso # (Auto) 0.0 K/mm3 (0.0-0.1) Abs Immat Gran (auto) 0.03 K/mm3 (0.00-0.031) Absolute Neuts (auto) 5.3 K/mm3 (1.3-6.7) Absolute Nucleated RBC 0.000 K/mm3 (0.0-0.012) Nucleated RBC % 0.0 % (0.0-0.2) Sodium 138 mmol/L (137-145) Potassium 4.2 mmol/L (3.4-5.0) Chloride 106 mmol/L (98-107) Carbon Dioxide 23 mmol/L (22-30) Anion Gap 9 mmol/L (4-12) BUN 20 mg/dL (9-20) Creatinine 1.40 H mg/dL (0.7-1.3) Estim Creat Clear Calc 69 ml/min Estimated GFR 50 L (59 - ) Glucose 108 mg/dL (65-110) Calcium 8.3 L mg/dL (8.4-10.2) Total Bilirubin 0.9 mg/dL (0.2-1.3) AST 16 L U/L (17-59) ALT 14 U/L (6-50) Alkaline Phosphatase 51 U/L (38-126) Total Protein 7.0 g/dL (6.3-8.2) Albumin 3.6 g/dL (3.5-5.1) Patient hx anesthesia problems: none Family hx anesthesia problems: none Results Review: All pre-operative results and documents have been reviewed as part of the pre-operative evaluation. 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 [facility] Smoking status: Never smoker Second hand tobacco smoke exposure: No Alcohol intake: never Substance use: never Substance use type: does not use Do You Feel Safe in your Home?: Yes Lack of Transportation: No Lack of Food: Never True Current Housing: I Have Housing Concerned About Future Housing: No Difficulty Paying Gas/Electric Bills: No Difficulty Paying for Meds: No Currently Unemployed: No Education: High School Diploma/GED Difficulty w/ Childcare or Family Care: No Living arrangements: with family Occupation/Education: retired Gender identity (if verbalized by the patient): Male Sexual Orientation (if Verbalized by the Patient): Straight or Heterosexual Spiritual care concerns: No Agree to blood products: Yes Exam Day of Procedure 05/30/24 16:03
[2024-05-30] MEDS: ACETAMINOPHEN 325 MG TABLET 650 MG PO (20:35)
[2024-05-31] VITALS (18 sets, daily range): BP systolic 109–152; BP diastolic 61–92; PULSE 61–88; RESP 14–20; TEMP 36.4–36.6; O2SAT 98–100
[2024-05-31] MEDS: ACETAMINOPHEN 325 MG TABLET 650 MG PO ×2 (01:14→20:55)
[2024-05-31] MEDS: SODIUM CHLORIDE 0.9% IV 1,000 ML 60 ML IV CONT (01:15)
[2024-05-31 05:13] LABS: Basophils Absolute Auto 0.1 K/mm3 (0.0-0.1); Basophils Percent Auto 0.7 % (0.2-1.2); Eosinophils Absolute Auto 0.5 K/mm3 (0-0.3); Eosinophils Percent Auto 5.1 % (0-4.4); Hematocrit 39.9 % (42.0-52.0); Hemoglobin 12.4 g/dL (14.0-18.0); Immature Granulocyte Absolute 0.04 K/mm3 (0.00-0.031); Immature Granulocyte Percent A 0.5 % (0-0.5); Lymphocytes Absolute Auto 1.53 K/mm3 (0.9-3.2); Lymphocytes Percent Auto 17.3 % (18.3-44.2); Mean Corpuscular HGB Conc 31.1 g/dl (32-36); Mean Corpuscular Hemoglobin 29.3 pg (26-34); Mean Corpuscular Volume 94.3 fl (80-100); Monocytes Absolute Auto 1.2 K/mm3 (0.1-0.6); Monocytes Percent Auto 13.6 % (2.6-8.5); Neutrophils Absolute Auto 5.5 K/mm3 (1.3-6.7); Neutrophils Percent Auto 62.8 % (45.5-73.1); Platelet Count Result 287 k/mm3 (150-375); Red Blood Count 4.23 M/mm3 (4.6-6.20); Red Cell Distribution Width 13.7 % (11.5-14.5); White Blood Count 8.8 K/mm3 (4.5-10.0)
[2024-05-31 05:32] LABS: Alanine Aminotransferase 15 U/L (6-50); Albumin Level 3.5 g/dL (3.5-5.1); Alkaline Phosphatase 56 U/L (38-126); Anion Gap 8 mmol/L (4-12); Aspartate Amino Transferase 15 U/L (17-59); Bilirubin,Total 0.4 mg/dL (0.2-1.3); Blood Urea Nitrogen 15 mg/dL (9-20); Calcium 8.4 mg/dL (8.4-10.2); Carbon Dioxide 23 mmol/L (22-30); Chloride 108 mmol/L (98-107); Estimated CRCL calculation 75 ml/min; Estimated Glomerular Filt Rate 55; Glucose 103 mg/dL (65-110); Potassium 3.9 mmol/L (3.4-5.0); Sodium 139 mmol/L (137-145)
[2024-05-31] MEDS: dilTIAZem 100 MG/100 ML 100 MG/100 ML BAG 15 MG IV CONT (06:07)
--- NOTE | 2024-05-31 07:18 | ECG_ITS ---
Test Date: 2024-05-31 13:36:26 Measurements Intervals [place] Rate: 70 P: 0 CA: 0 QRS: -21 QRSD: 111 T: -8 QT: 388 QTc: 419 Interpretive Statements ATRIAL FIBRILLATION SEPTAL MYOCARDIAL INFARCTION , PROBABLY OLD [40+ ms Q WAVE IN V1/V2] Compared to ECG 05/27/2024 11:04:59 Atrial flutter no longer present Left-axis deviation no longer present Myocardial infarct finding still present Electronically Signed On 05-31-2024 15:12:09 CDT by Rk Burdick M.D.
[2024-05-31] MEDS: METOPROLOL TARTRATE 25 MG TABLET PO ×2 (09:22→20:55)
[2024-05-31] MEDS: CLOPIDOGREL BISULFATE 75 MG TABLET PO (09:23)
[2024-05-31] MEDS: APIXABAN 5 MG TABLET PO ×2 (09:23→20:54)
[2024-05-31] MEDS: TAMSULOSIN HCL 0.4 MG CAPSULE PO (09:23)
--- NOTE | 2024-05-31 09:44 | P.PNIM_ITS ---
Progress Note: A&P Assessment and Plan (1) Atrial flutter with rapid ventricular response: Code(s): I48.92 - Unspecified atrial flutter Status: Inactive Assessment and Plan: - presented initially to [facility] with complaints palpitation and rapid heart rate. He was found to be in a flutter with RVR with a rate of 155 . Patient does have a history of a flutter in the EMR however he denies history of a flutter. * Metoprolol on hold * Cardizem infusion initiated and currently infusing at 7.5 milligram/hour * cardiology consulted * continuous telemetry monitoring * troponin flat x2 * chest x-ray was negative for any acute cardiopulmonary disease * heart healthy diet * Plan HARMEET cardioversion 10/01 - oral cardizem, metoprolol mngmnt per cards (2) Essential (primary) hypertension: Code(s): I10 - Essential (primary) hypertension Status: Acute Assessment and Plan: * 05/29 BP 95/61, 05/30 134/87 (3) Benign prostatic hyperplasia with lower urinary tract symptoms: Code(s): N40.1 - Benign prostatic hyperplasia with lower urinary tract symptoms Status: Acute Assessment and Plan: * continue tamsulosin (4) Acute kidney injury: Code(s): N17.9 - Acute kidney failure, unspecified Status: Acute Assessment and Plan: * admission creatinine initially 1.75, EGFR 39 * baseline creatinine appears to be 1.15-1.17, EGFR >60 * continue to trend * hold nephrotoxic medications * lisinopril on hold * 05/29 creatinine 1.4, 05/30 1.4 Time Spent With Patient Time with patient: Greater than 35 minutes Subjective Date/time seen: 05/31/24 09:44 Interval history: 68-year-old admitted for tachycardia. Date of service 05/29/2024: His IV infiltrated last night. Several hours without an IV. During that time he was tachycardic but tolerated it well. Now has an IV again in diltiazem drip reinstituted. Heart rate is much better controlled. Otherwise feels fine and denies any chest pain or shortness of breath. Date of service 05/30/2024: He has no chest pain, shortness of breath. Heart rate control but does increase significantly with activity. 05/31 assuming care- pt is seen and examined. HARMEET was schedule for today but pt heart rate had been stable- no procedure was done. Per card- if hr remains stable- possibility for discharge. Review of Systems Review of Systems: All systems reviewed & are unremarkable except as noted in HPI and below Constitutional: Constitutional: Reports as per HPI and Reports no additional c onstitutional complaints Eyes: Eyes: Reports as per HPI and Reports no additional eye complaints ENT: Reports system reviewed and no additional complaints, except as documented and Reports as per HPI Cardiovascular: Cardiovascular: Reports as per HPI and Reports no additional cardiovascular complaints Respiratory: Respiratory: Reports as per HPI and Reports no additional respiratory complaints Gastrointestinal: Gastrointestinal: Reports as per HPI and Reports no additional gastrointestinal complaints Genitourinary: Genitourinary: Reports no additional male genitourinary complaints and Reports as per HPI Musculoskeletal: Musculoskeletal: Reports no additional musculoskeletal complaints and Reports as per HPI Integumentary/Breasts: Skin/Breast: Reports system reviewed and no additional complaints, except as docu and Reports as per HPI Neurologic: Reports system reviewed and no additional complaints, except as documented and Reports as per HPI Psychiatric: Psychiatric: Reports no additional psychiatric complaints and Reports as per HPI Exam Narrative: HEENT: EOMI, sclerae nonicteric, pharyngeal mucosa pink and intact NECK: No JV CHEST: Clear to auscultation. Normal effort. HEART: NL S1/S2, irregularly irregular rhythm, mildly tachycardic. ABDOMEN: BS+, soft, nontender, no mass, no bruits EXTREMITIES: No cyanosis, edema, or clubbing NEUROLOGIC: CN intact and symmetric to inspection. MUSCULOSKELETAL: Tone and strength symmetric. PSYCH: Alert. Oriented to person, place, and time. Objective Data Vital Signs Vital Signs: Vital Signs - 24 hr 05/30/24 10:15 05/30/24 10:21 05/30/24 10:30 Temperature Pulse Rate 84 88 88 Respiratory Rate Blood Pressure 108/76 Pulse Oximetry Oxygen Delivery 05/30/24 12:08 05/30/24 12:00 05/30/24 10:00 Temperature 97.7 F Pulse Rate 89 82 84 Respiratory Rate 16 Blood Pressure 103/60 Pulse Oximetry 99 Oxygen Delivery 05/30/24 12:00 05/30/24 12:49 05/30/24 12:00 Temperature Pulse Rate 78 89 Respiratory Rate Blood Pressure 103/60 Pulse Oximetry Oxygen Delivery Room Air 05/30/24 14:00 05/30/24 16:00 05/30/24 16:35 Temperature 98.1 F 98.2 F Pulse Rate 87 84 80 Respiratory Rate 16 24 H Blood Pressure 138/90 121/73 121/73 Pulse Oximetry 100 99 Oxygen Delivery 05/30/24 16:35 05/30/24 14:00 05/30/24 16:00 Temperature Pulse Rate 80 77 Respiratory Rate Blood Pressure 121/73 Pulse Oximetry Oxygen Delivery Room Air 05/30/24 14:00 05/30/24 16:00 05/30/24 18:00 Temperature 98.2 F Pulse Rate 75 71 87 Respiratory Rate 16 Blood Pressure 127/61 Pulse Oximetry 98 Oxygen Delivery 05/30/24 19:50 05/30/24 18:00 05/30/24 18:00 Temperature 98.1 F Pulse Rate 78 77 77 Respiratory Rate 20 Blood Pressure 150/90 H 127/61 Pulse Oximetry 98 Oxygen Delivery 05/30/24 20:36 05/30/24 20:00 05/30/24 20:00 Temperature Pulse Rate 77 77 Respiratory Rate Blood Pressure Pulse Oximetry Oxygen Delivery Room Air 05/30/24 20:00 05/30/24 22:00 05/30/24 22:00 Temperature Pulse Rate 77 88 88 Respiratory Rate 20 Blood Pressure 150/90 H 137/75 Pulse Oximetry 98 Oxygen Delivery 05/30/24 22:00 05/30/24 23:30 05/30/24 23:37 Temperature Pulse Rate 88 79 79 Respiratory Rate Blood Pressure 137/75 124/62 124/62 Pulse Oximetry Oxygen Delivery 05/30/24 23:38 05/31/24 01:59 05/31/24 00:00 Temperature 97.9 F 97.7 F Pulse Rate 78 74 70 Respiratory Rate 14 14 Blood Pressure 122/64 124/67 Pulse Oximetry 96 98 Oxygen Delivery 05/31/24 02:00 05/31/24 00:00 05/31/24 02:00 Temperature Pulse Rate 73 74 Respiratory Rate Blood Pressure 124/67 Pulse Oximetry Oxygen Delivery Room Air 05/31/24 04:00 05/31/24 04:00 05/31/24 04:00 Temperature 97.5 F L Pulse Rate 76 71 Respiratory Rate 16 Blood Pressure 119/61 Pulse Oximetry 100 Oxygen Delivery Room Air 05/31/24 04:00 05/31/24 06:00 05/31/24 06:07 Temperature Pulse Rate 80 67 73 Respiratory Rate 18 Blood Pressure 119/61 122/73 122/73 Pulse Oximetry 98 Oxygen Delivery 05/31/24 06:07 05/31/24 06:00 05/31/24 08:00 Temperature 97.8 F Pulse Rate 73 72 80 Respiratory Rate 16 Blood Pressure 122/73 151/87 H Pulse Oximetry 99 Oxygen Delivery 05/31/24 09:22 Temperature Pulse Rate 68 Respiratory Rate Blood Pressure Pulse Oximetry Oxygen Delivery Intake/Output Intake/Output: Intake & Output 05/28/24 05/29/24 05/30/24 05/31/24 23:59 23:59 23:59 23:59 Intake Total 1924 2629.7 3313.0 1340.5 Output Total 1900 2100 725 1925 Balance 24 529.7 2588.0 -584.5 Meds/Results Medications: Active Medications Generic Name Dose Route Start Last Admin Trade Name Freq PRN Reason Stop Dose Admin Acetaminophen 650 mg 05/27/24 17:48 05/31/24 01:14 Acetaminophen 325 Mg Tablet PO 650 mg Q4H PRN Administration Mild Pain (1-3) or Fever Apixaban 5 mg 05/27/24 21:00 05/31/24 09:23 Apixaban 5 Mg Tablet PO 5 mg Q12HR JAYLEN Administration Clopidogrel Bisulfate 75 mg 05/28/24 09:00 05/31/24 09:23 Clopidogrel Bisulfate 75 Mg Tablet PO 75 mg DAILY JAYLEN Administration Hydralazine HCl 10 mg 05/27/24 23:54 Hydralazine Hcl 20 Mg/Ml Vial IV PUSH Q8H PRN Blood Pressure - High Diltiazem HCl 100 mg in 100 mls @ 15 mls/hr 05/27/24 17:55 05/31/24 06:07 Cardizem 100 Mg/100 Ml IV CONT 15 mg/hr .[id number] JAYLEN 15 mls/hr Administration 15 MG/HR Sodium Chloride 1,000 mls @ 60 mls/hr 05/28/24 11:30 05/31/24 01:15 Normal Saline Iv IV CONT 60 mls/hr .[id number] JAYLEN Administration Metoprolol Tartrate 5 mg 05/28/24 15:27 Metoprolol Tartrate Inj 5 Mg/5 Ml Vial IV PUSH Q2H PRN Tachycardia Metoprolol Tartrate 25 mg 05/30/24 21:00 05/31/24 09:22 Metoprolol Tartrate 25 Mg Tablet PO 25 mg Q12HR JAYLEN Administration Ondansetron HCl 4 mg 05/27/24 17:48 Ondansetron Inj 4 Mg/2 Ml Vial IV PUSH Q6H PRN Nausea And Vomiting Polyethylene Glycol 17 gm 05/28/24 09:00 05/31/24 09:23 Polyethylene Glycol 3350 17 Gm Powd.Pack PO Not Given DAILY JAYLEN Tamsulosin HCl 0.4 mg 05/28/24 09:00 05/31/24 09:23 Tamsulosin Hcl 0.4 Mg Capsule PO 0.4 mg DAILY JAYLEN Administration Labs Labs: Laboratory Results - last 24 hr 05/31/24 04:52 WBC 8.8 RBC 4.23 L Hgb 12.4 L Hct 39.9 L MCV 94.3 MCH 29.3 MCHC 31.1 L RDW 13.7 Plt Count 287 MPV 11.0 H Immature Gran % (Auto) 0.5 Neut % (Auto) 62.8 Lymph % (Auto) 17.3 L [place] % (Auto) 13.6 H Eos % (Auto) 5.1 H Baso % (Auto) 0.7 Lymph # (Auto) 1.53 [place] # (Auto) 1.2 H Eos # (Auto) 0.5 H Baso # (Auto) 0.1 Abs Immat Gran (auto) 0.04 H Absolute Neuts (auto) 5.5 Absolute Nucleated RBC 0.000 Nucleated RBC % 0.0 Sodium 139 Potassium 3.9 Chloride 108 H Carbon Dioxide 23 Anion Gap 8 BUN 15 D Creatinine 1.30 Estim Creat Clear Calc 75 Estimated GFR 55 L Glucose 103 Calcium 8.4 Total Bilirubin 0.4 AST 15 L ALT 15 Alkaline Phosphatase 56 Total Protein 7.0 Albumin 3.5 Quality VTE Prophylaxis VTE prophylaxis: pharmacologic ordered
--- NOTE | 2024-05-31 10:27 | PM.PNCARD ---
Progress Note: A&P Assessment and Plan (1) Atrial flutter: Code(s): I48.92 - Unspecified atrial flutter Status: Acute Plan 68-year-old man who was admitted for atrial flutter with rapid ventricular rates -rates have been well controlled on diltiazem drip and can be converted to oral diltiazem at this time -continue metoprolol If rates remain controlled can be discharged. Subjective Date/time seen: 05/31/24 10:27 Interval history: 68-year-old man who was admitted for atrial flutter with rapid ventricular rates Review of Systems Review of Systems: All systems reviewed & are unremarkable except as noted in HPI and below Exam Const: General: comfortable HENMT: Mouth: Yes moist mucous membranes Eyes: EOM: EOMs intact bilaterally Neck: Neck: no JVD Resp: Effort & Inspection: normal respiratory effort Auscultation: clear to auscultation bilaterally Cardio: Rate: regular rate Rhythm: abnormal rhythm GI: GI Palp: Yes Soft to palpation Neuro: Speech: normal speech Extrem: General: no edema Psych: Affect: normal affect Objective Data Vital Signs Vital Signs: Vital Signs - 24 hr 05/30/24 10:30 05/30/24 12:08 05/30/24 12:00 Temperature 36.5 C Pulse Rate 88 89 82 Respiratory Rate 16 Blood Pressure 103/60 Pulse Oximetry 99 Oxygen Delivery 05/30/24 12:00 05/30/24 12:49 05/30/24 12:00 Temperature Pulse Rate 78 89 Respiratory Rate Blood Pressure 103/60 Pulse Oximetry Oxygen Delivery Room Air 05/30/24 14:00 05/30/24 16:00 05/30/24 16:35 Temperature 36.7 C 36.8 C Pulse Rate 87 84 80 Respiratory Rate 16 24 H Blood Pressure 138/90 121/73 121/73 Pulse Oximetry 100 99 Oxygen Delivery 05/30/24 16:35 05/30/24 14:00 05/30/24 16:00 Temperature Pulse Rate 80 77 Respiratory Rate Blood Pressure 121/73 Pulse Oximetry Oxygen Delivery Room Air 05/30/24 14:00 05/30/24 16:00 05/30/24 18:00 Temperature 36.8 C Pulse Rate 75 71 87 Respiratory Rate 16 Blood Pressure 127/61 Pulse Oximetry 98 Oxygen Delivery 05/30/24 19:50 05/30/24 18:00 05/30/24 18:00 Temperature 36.7 C Pulse Rate 78 77 77 Respiratory Rate 20 Blood Pressure 150/90 H 127/61 Pulse Oximetry 98 Oxygen Delivery 05/30/24 20:36 05/30/24 20:00 05/30/24 20:00 Temperature Pulse Rate 77 77 Respiratory Rate Blood Pressure Pulse Oximetry Oxygen Delivery Room Air 05/30/24 20:00 05/30/24 22:00 05/30/24 22:00 Temperature Pulse Rate 77 88 88 Respiratory Rate 20 Blood Pressure 150/90 H 137/75 Pulse Oximetry 98 Oxygen Delivery 05/30/24 22:00 05/30/24 23:30 05/30/24 23:37 Temperature Pulse Rate 88 79 79 Respiratory Rate Blood Pressure 137/75 124/62 124/62 Pulse Oximetry Oxygen Delivery 05/30/24 23:38 05/31/24 01:59 05/31/24 00:00 Temperature 36.6 C 36.5 C Pulse Rate 78 74 70 Respiratory Rate 14 14 Blood Pressure 122/64 124/67 Pulse Oximetry 96 98 Oxygen Delivery 05/31/24 02:00 05/31/24 00:00 05/31/24 02:00 Temperature Pulse Rate 73 74 Respiratory Rate Blood Pressure 124/67 Pulse Oximetry Oxygen Delivery Room Air 05/31/24 04:00 05/31/24 04:00 05/31/24 04:00 Temperature 36.4 C L Pulse Rate 76 71 Respiratory Rate 16 Blood Pressure 119/61 Pulse Oximetry 100 Oxygen Delivery Room Air 05/31/24 04:00 05/31/24 06:00 05/31/24 06:07 Temperature Pulse Rate 80 67 73 Respiratory Rate 18 Blood Pressure 119/61 122/73 122/73 Pulse Oximetry 98 Oxygen Delivery 05/31/24 06:07 05/31/24 06:00 05/31/24 08:00 Temperature 36.6 C Pulse Rate 73 72 80 Respiratory Rate 16 Blood Pressure 122/73 151/87 H Pulse Oximetry 99 Oxygen Delivery 05/31/24 09:22 Temperature Pulse Rate 68 Respiratory Rate Blood Pressure Pulse Oximetry Oxygen Delivery Intake/Output Intake/Output: Intake & Output 05/28/24 05/29/24 05/30/24 05/31/24 23:59 23:59 23:59 23:59 Intake Total 1924 2629.7 3313.0 1340.5 Output Total 1900 2100 725 1925 Balance 24 529.7 2588.0 -584.5 Meds/Results Medications: Active Medications Generic Name Dose Route Start Last Admin Trade Name Freq PRN Reason Stop Dose Admin Acetaminophen 650 mg 05/27/24 17:48 05/31/24 01:14 Acetaminophen 325 Mg Tablet PO 650 mg Q4H PRN Administration Mild Pain (1-3) or Fever Apixaban 5 mg 05/27/24 21:00 05/31/24 09:23 Apixaban 5 Mg Tablet PO 5 mg Q12HR JAYLEN Administration Clopidogrel Bisulfate 75 mg 05/28/24 09:00 05/31/24 09:23 Clopidogrel Bisulfate 75 Mg Tablet PO 75 mg DAILY JAYLEN Administration Diltiazem HCl 240 mg 05/31/24 10:30 Diltiazem Hcl Cd 240 Mg Cap.24hr PO QAM JAYELN Hydralazine HCl 10 mg 05/27/24 23:54 Hydralazine Hcl 20 Mg/Ml Vial IV PUSH Q8H PRN Blood Pressure - High Sodium Chloride 1,000 mls @ 60 mls/hr 05/28/24 11:30 05/31/24 01:15 Normal Saline Iv IV CONT 60 mls/hr .[id number] JAYLEN Administration Metoprolol Tartrate 5 mg 05/28/24 15:27 Metoprolol Tartrate Inj 5 Mg/5 Ml Vial IV PUSH Q2H PRN Tachycardia Metoprolol Tartrate 25 mg 05/30/24 21:00 05/31/24 09:22 Metoprolol Tartrate 25 Mg Tablet PO 25 mg Q12HR JAYLEN Administration Ondansetron HCl 4 mg 05/27/24 17:48 Ondansetron Inj 4 Mg/2 Ml Vial IV PUSH Q6H PRN Nausea And Vomiting Polyethylene Glycol 17 gm 05/28/24 09:00 05/31/24 09:23 Polyethylene Glycol 3350 17 Gm Powd.Pack PO Not Given DAILY JAYLEN Tamsulosin HCl 0.4 mg 05/28/24 09:00 05/31/24 09:23 Tamsulosin Hcl 0.4 Mg Capsule PO 0.4 mg DAILY JAYLEN Administration Labs Labs: Laboratory Results - last 24 hr 05/31/24 04:52 WBC 8.8 RBC 4.23 L Hgb 12.4 L Hct 39.9 L MCV 94.3 MCH 29.3 MCHC 31.1 L RDW 13.7 Plt Count 287 MPV 11.0 H Immature Gran % (Auto) 0.5 Neut % (Auto) 62.8 Lymph % (Auto) 17.3 L [place] % (Auto) 13.6 H Eos % (Auto) 5.1 H Baso % (Auto) 0.7 Lymph # (Auto) 1.53 [place] # (Auto) 1.2 H Eos # (Auto) 0.5 H Baso # (Auto) 0.1 Abs Immat Gran (auto) 0.04 H Absolute Neuts (auto) 5.5 Absolute Nucleated RBC 0.000 Nucleated RBC % 0.0 Sodium 139 Potassium 3.9 Chloride 108 H Carbon Dioxide 23 Anion Gap 8 BUN 15 D Creatinine 1.30 Estim Creat Clear Calc 75 Estimated GFR 55 L Glucose 103 Calcium 8.4 Total Bilirubin 0.4 AST 15 L ALT 15 Alkaline Phosphatase 56 Total Protein 7.0 Albumin 3.5
[2024-05-31] MEDS: dilTIAZem HCL CD 240 MG CAP.24HR PO (11:02)
[2024-06-01] VITALS: PULSE 74
[2024-06-01 02:00] VITALS: PULSE 59
[2024-06-01 04:00] VITALS: PULSE 63
[2024-06-01 05:11] VITALS: BP 139/66; PULSE 69; RESP 18; TEMP 36.5; O2SAT 93
[2024-06-01 05:28] LABS: Basophils Absolute Auto 0.1 K/mm3 (0.0-0.1); Basophils Percent Auto 0.6 % (0.2-1.2); Eosinophils Absolute Auto 0.4 K/mm3 (0-0.3); Eosinophils Percent Auto 4.5 % (0-4.4); Hematocrit 39.7 % (42.0-52.0); Hemoglobin 12.3 g/dL (14.0-18.0); Immature Granulocyte Absolute 0.05 K/mm3 (0.00-0.031); Immature Granulocyte Percent A 0.6 % (0-0.5); Lymphocytes Absolute Auto 1.29 K/mm3 (0.9-3.2); Lymphocytes Percent Auto 14.2 % (18.3-44.2); Mean Corpuscular Hemoglobin 29.9 pg (26-34); Mean Corpuscular Volume 96.6 fl (80-100); Mean Platelet Volume 11.6 fl (7.4-10.4); Monocytes Percent Auto 10.9 % (2.6-8.5); Neutrophils Absolute Auto 6.3 K/mm3 (1.3-6.7); Neutrophils Percent Auto 69.2 % (45.5-73.1); Platelet Count Result 246 k/mm3 (150-375); Red Blood Count 4.11 M/mm3 (4.6-6.20); Red Cell Distribution Width 13.9 % (11.5-14.5); White Blood Count 9.1 K/mm3 (4.5-10.0)
[2024-06-01 05:44] LABS: Alanine Aminotransferase 15 U/L (6-50); Albumin Level 3.7 g/dL (3.5-5.1); Alkaline Phosphatase 51 U/L (38-126); Anion Gap 9 mmol/L (4-12); Aspartate Amino Transferase 18 U/L (17-59); Bilirubin,Total 0.8 mg/dL (0.2-1.3); Blood Urea Nitrogen 16 mg/dL (9-20); Calcium 8.6 mg/dL (8.4-10.2); Carbon Dioxide 23 mmol/L (22-30); Chloride 107 mmol/L (98-107); Estimated CRCL calculation 74 ml/min; Estimated Glomerular Filt Rate 55; Glucose 100 mg/dL (65-110); Potassium 4.5 mmol/L (3.4-5.0); Sodium 139 mmol/L (137-145)
--- NOTE | 2024-06-01 07:10 | PM.DS ---
DS: Admitting Diagnosis Discharge Date 06/01 Admitting Diagnosis palpitations DS: Discharge Diagnosis Discharge Diagnosis (1) Atrial flutter with rapid ventricular response: Code(s): I48.92 - Unspecified atrial flutter Status: Inactive (2) Essential (primary) hypertension: Code(s): I10 - Essential (primary) hypertension Status: Acute (3) Benign prostatic hyperplasia with lower urinary tract symptoms: Code(s): N40.1 - Benign prostatic hyperplasia with lower urinary tract symptoms Status: Acute (4) Acute kidney injury: Code(s): N17.9 - Acute kidney failure, unspecified Status: Acute DS: Summary Hospital Course Hospital Course: - presented initially to [facility] with complaints palpitation and rapid heart rate. He was found to be in a flutter with RVR with a rate of 155. Troponin were wnl, chest xray negative for acure cardiopulmonary disease -Cardizem infusion initiated and currently infusing at 7.5 milligram/hour - Plan HARMEET cardioversion 10/01- buit was never done - heart rate converted, pt was switched to PO diltiazem. Per cardiology- can be discharged if remains stable. Continue metoprolol, diltiazem and close f/u with card. Status at Discharge Functional status at discharge: independent ambulation Overall status at discharge: patient is progressing back to baseline Time Spent with Patient Time attestation: Total time spent providing and/or coordinating discharge services: Time spent: Greater than 30 minutes Exam Narrative: HEENT: EOMI, sclerae nonicteric, pharyngeal mucosa pink and intact NECK: No JV CHEST: Clear to auscultation. Normal effort. HEART: NL S1/S2, irregularly irregular rhythm, mildly tachycardic. ABDOMEN: BS+, soft, nontender, no mass, no bruits EXTREMITIES: No cyanosis, edema, or clubbing NEUROLOGIC: CN intact and symmetric to inspection. MUSCULOSKELETAL: Tone and strength symmetric. PSYCH: Alert. Oriented to person, place, and time. DS: Data Data Completed and Pending Completed studies during hospitalization: chest xray Labs on day of discharge: Labs from last 24 hours 06/01/24 05:10 WBC 9.1 RBC 4.11 L Hgb 12.3 L Hct 39.7 L MCV 96.6 MCH 29.9 MCHC 31.0 L RDW 13.9 Plt Count 246 MPV 11.6 H Immature Gran % (Auto) 0.6 H Neut % (Auto) 69.2 Lymph % (Auto) 14.2 L [place] % (Auto) 10.9 H Eos % (Auto) 4.5 H Baso % (Auto) 0.6 Lymph # (Auto) 1.29 [place] # (Auto) 1.0 H Eos # (Auto) 0.4 H Baso # (Auto) 0.1 Abs Immat Gran (auto) 0.05 H Absolute Neuts (auto) 6.3 Absolute Nucleated RBC 0.000 Nucleated RBC % 0.0 Sodium 139 Potassium 4.5 Chloride 107 Carbon Dioxide 23 Anion Gap 9 BUN 16 Creatinine 1.30 Estim Creat Clear Calc 74 Estimated GFR 55 L Glucose 100 Calcium 8.6 Total Bilirubin 0.8 AST 18 ALT 15 Alkaline Phosphatase 51 Total Protein 7.0 Albumin 3.7 Discharge Plan Discharge Attending physician on discharge: Raisa Espitia Consulting providers: Mary Mckeon Discharging Clinician: Kaye Gonzalez Patient Disposition: Home, Self-Care Activity: may shower and as tolerated Diet: as tolerated and heart healthy Discharge Instructions: you were admitted with atrial flutter. Initially you were on cardizem drip, then your hr converted to normal sinus rhythm. We switched you to oral cardizem and you remained stable- normal sinus rhythm overnight. Cardiology was ok with letting you go home with a close f/u with them and to continue taking your cardizem and metoprolol. Please take it easy for the first week or two, rest, stay hydrated, eat healthy heart diet. Continue to monitor your heart rate and if you noticed any changes- fast and/or irregular rhythm, or new symptoms develop like chest pain, please either reach out to cardiology right away or come to er. Please take your eliquis- it is anticoagulation medication to prevent blood clots. This medication makes your blood thinner- so it might increase risk for bleeding- please be careful with position change- do it slowly to avoid falling, use soft toothbrushes, be careful shaving. Patient Instructions: Antibiotic Form, Clopidogrel (By mouth) Stand Alone Forms: General Discharge Information Follow-up/Referrals: Edouard Steel MD [Physician] - 1 Week Todd Maravilla MD [Primary Care Provider] - 2 Weeks Discharge Medications: New Eliquis 5 mg Tablet 5 mg PO Q12HR Qty: 90 0RF diltiazem HCl 240 mg Capsule,Ext.Rel 24h Degradable 240 mg PO QAM Qty: 90 0RF Continued polyethylene glycol 3350 [Miralax] 17 gram/dose powder 17 g PO DAILY tamsulosin 0.4 mg capsule 0.4 mg PO DAILY Qty: 90 2RF Fish Oil Capsule 3,000 mg PO DAILY clopidogrel 75 mg tablet 75 mg PO DAILY Qty: 90 2RF lisinopril 40 mg tablet 40 mg PO DAILY Qty: 90 1RF metoprolol succinate 50 mg tablet extended release 24 hr 75 mg PO DAILY Qty: 45 2RF Date of admission: 05/28/24 16:22 Primary Care Provider: Todd Maravilla Admitting Provider: Silvio Drew Attending physician on admission: Silvio Drew Condition: Improved Quality VTE Prophylaxis VTE prophylaxis: pharmacologic ordered Hospitalist MIPS Heart Failure (Exclusion) Patient has history of Heart Transplant or Left Ventricular Assistive Device?: No IF YES, STOP HERE Heart Failure (Qualifier) Patient has current or prior documentation of LVEF less than or equal to 40%, or mod/servere depressed LVSF?: No IF NO, STOP HERE
[2024-06-01 08:00] VITALS: BP 141/82; PULSE 68; PULSE 71; RESP 14; TEMP 36.3; O2SAT 98
[2024-06-01 08:42] VITALS: PULSE 71
[2024-06-01] MEDS: TAMSULOSIN HCL 0.4 MG CAPSULE PO (08:42)
[2024-06-01] MEDS: METOPROLOL TARTRATE 25 MG TABLET PO (08:42)
[2024-06-01] MEDS: APIXABAN 5 MG TABLET PO (08:42)
[2024-06-01] MEDS: CLOPIDOGREL BISULFATE 75 MG TABLET PO (08:42)
[2024-06-01] MEDS: dilTIAZem HCL CD 240 MG CAP.24HR PO (08:42)
== END 2024-06-01 10:25 | disposition home or self-care (01) | DRG 309 ==
PROVIDERS: Nurse Practitioner Acute Care; Admitting Provider Internal Medicine; PCP Family Medicine Adolescent Medicine; Visit Provider Nurse Practitioner
DX: I48.92 Unspecified atrial flutter (principal); N17.9 Acute kidney failure, unspecified; I10 Essential (primary) hypertension; K57.30 Diverticulosis of large intestine without perforation or abscess without bleeding; N40.0 Benign prostatic hyperplasia without lower urinary tract symptoms; Z79.02 Long term (current) use of antithrombotics/antiplatelets
CPT/HCPCS: 36415; 80053; 83036; 85025; 93005; 94762; 96365; 96366; A9270; G0378; G0379; J7030

== ENCOUNTER 2024-10-25 07:23 | Outpatient (CLI) | payer MEDICARE, SELFPAY ==
--- NOTE | ~2024-10-25 | CT_ITS ---
EXAMINATION: CTA chest DATE: 10/25/2024 08:05 INDICATION: Aneurysm of ascending aorta without rupture. TECHNIQUE: Computed tomographic angiography (CTA) of the chest was performed with 100 mL Omnipaque-35 0 intravenous contrast. Automated exposure control and iterative reconstruction technique were employ ed. The dose-length product was 1289.16 mGy-cm. Maximum intensity projection 3D-reconstructions of th e aorta and other arteries were constructed by the technologist on a separate workstation. COMPARISON: Chest CT 12/29/18 FINDINGS: The lungs demonstrate mild atelectasis. A calcified left lung nodule and calcified left hil ar and mediastinal lymph nodes are consistent with old granulomatous disease. No pleural effusion. Th e heart size is normal. There are coronary artery calcifications. No pericardial effusion. Thoracic a fernanda measures 4.9 cm at the sinuses of Valsalva, 4.0 cm at the sinotubular junction, 4.2 cm in the mi d ascending aorta, 3.2 cm at the aortic isthmus, and 3.3 cm in the mid descending aorta. There is mod erate atrophy of left kidney. There is severe cervical and thoracic spondylosis. IMPRESSION: 1. 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 Reviewed, dictated and finalized at location A.
--- OUTSIDE RECORDS SUMMARY | 2024-10-25 07:31 | XMS_ITS | Data Portability ---
Author Organization [place] - [facility] OFFICE Address [address] [place] [address] Care Team Providers Care Literacy Coordinator Name Role Phone LILA CASTORENA Primary Care Provider Assessment Encounter Date Assessment Date Assessment LastModified by Organization Details LastModified Time 02/10/2019 02/10/2019 Discussed with patient findings, diagnosis, and prognosis. Discussed evaluation and treatment options including risks and benefits with patient, and patient expressed understanding. The following interventions were recommended: heart healthy low-fat, low-sodium diet, avoid strenuous exercise pending completion of cardiovascular evaluation, maintain appropriate weight, continue current medications, and medical follow-up as noted. [email or web address] Not available 02/10/2019 16:19:43 02/16/2019 02/16/2019 Discussed with patient findings, diagnosis, and prognosis. Discussed evaluation and treatment options including risks and benefits with patient, and patient expressed understanding. The following interventions were recommended: heart healthy low-fat, low-sodium diet, avoid strenuous exercise pending completion of cardiovascular evaluation, maintain appropriate weight, continue current medications, and medical follow-up as noted. [email or web address] Not available 02/16/2019 11:38:53 03/11/2019 03/11/2019 Discussed with patient findings, diagnosis, and prognosis. Discussed evaluation and treatment options including risks and benefits with patient, and patient expressed understanding. The following interventions were recommended: heart healthy low-fat, low-sodium diet, begin cardiac rehabilitation program, maintain appropriate weight, continue current medications, and medical follow-up as noted. [email or web address] Not available 03/11/2019 16:32:01 Plan of Treatment Reminders Order Date Submit Date Provider Last Modified By Organization Details Last Modified Time Details Appointments None recorded. Lab None recorded. Referral None recorded. Procedures None recorded. Surgeries None recorded. Imaging electrocar diogram 2018 019 [email or web address] Not available 9 13:43:51 Medication Orders spironolac tone 25 mg tablet 2018 [facility][id number], [address], [place], [place], [id number], 9 16:35:05 atorvastat in 20 mg tablet 2018 INTERFACE [facility] #[id number], [address], [place], [place], [id number], 9 16:35:05 magnesium oxide 400 mg (241.3 mg magnesium) tablet 2018 INTERFACE [facility] #[id number], [address], [place], [place], [id number], 9 13:37:40 magnesium oxide 400 mg (241.3 mg magnesium) tablet 2018 019 [email or web address] [facility] #[id number], [address], [place], [place], [id number], 9 13:26:57 metoprolol succinate ER 100 mg tablet,ext ended release 24 hr 2018 [facility] #[id number], [address], [place], [place], [id number], 9 16:23:23 Patient TargetsNo targets recorded. Patient Instructions Encounter Date Encounter Id Patient Instructions Last Modified By Organization Details Last Modified Time 01/20/2019 [id number] high blood press ure: care instructions Not available 01/20/2019 17:14:30 learning about h igh blood pressure Not available 01/20/2019 17:14:30 electrical cardioversion: before your procedure Not available 01/20/2019 17:14:30 Electrophysiolog y (EP) Study: Before Your Procedure Not available 01/20/2019 17:14:30 Weight loss 20 p ounds Exercise advised Low cholesterol diet advised Low sodium diet advised. Not available 01/20/2019 11:56:48 Patient was seen and evaluated by {{Tacho Alonso MERCHANDISE EXAMINER-C*}}. Plan of care was discussed with collaborating physician. Note cosigned by {{Tacho Gamboa MD*}}. Not available 01/20/2019 11:56:41 02/10/2019 [id number] high blood press ure: care instructions [email or web address] Not available 02/10/2019 16:23:17 learning about h igh blood pressure [email or web address] Not available 02/10/2019 16:23:17 electrical cardioversion: before your procedure [email or web address] Not available 02/10/2019 16:23:17 Electrophysiolog y (EP) Study: Before Your Procedure [email or web address] Not available 02/10/2019 16:23:17 02/16/2019 [id number] high blood press ure: care instructions [email or web address] Not available 02/16/2019 13:37:35 learning about h igh blood pressure [email or web address] Not available 02/16/2019 13:37:35 electrical cardioversion: before your procedure [email or web address] Not available 02/16/2019 13:37:35 Electrophysiolog y (EP) Study: Before Your Procedure [email or web address] Not available 02/16/2019 13:37:35 03/11/2019 [id number] high blood press ure: care instructions [email or web address] Not available 03/11/2019 16:34:58 learning about h igh blood pressure [email or web address] Not available 03/11/2019 16:34:59 electrical cardioversion: before your procedure [email or web address] Not available 03/11/2019 16:34:59 Electrophysiolog y (EP) Study: Before Your Procedure [email or web address] Not available 03/11/2019 16:34:58 Reason for Referral None Reported. Results Created Date Observation Date Name Description Value Unit Range Abnormal Flag Note LastModifiedBy Organization Detail LastModifiedTime 01/21/20 19 12/29/2018 elect rocar diogr am No observ ation record ed. [email or web address] Not Available 01/20 17:56:12 01/27/20 19 12/30/2018 US, wesle x, leoou s, extre mity, compl ete No observ ation record ed. Not Available 01/26 16:08:38 01/27/20 19 12/29/2018 XR, chest , 1 view No observ ation record ed. Not Available 01/26 16:10:30 01/27/20 19 12/29/2018 CT, angio gram, chest , w/ contr ast No observ ation record ed. Not Available 01/26 16:13:26 01/27/20 19 12/30/2018 US, echoc ardio gram No observ ation record ed. Not Available 01/26 16:14:38 02/18/20 19 01/29/2019 tread mill nucle ar stres s test (PROC ) No observ ation record ed. [email or web address] Not Available 2018 09:45:08 02/18/20 19 02/16/2019 elect rocar diogr am No observ ation record ed. [email or web address] Not Available 2018 09:51:08 02/25/20 19 02/10/2019 elect rocar diogr am No observ ation record ed. [email or web address] Not Available 2018 16:20:42 02/25/20 19 02/10/2019 [facility] rocar diogr am No observ ation record ed. [email or web address] Not Available 2018 16:22:39 Result Notes None recorded. Problems Name Problem SNOMED Code Status Onset Date Resolution Date Notes Provider Name and Address Organization Details Recorded Time Essential hypertensio n 71693598 Active 2018 Janki hernandez [place] - [facility] 9 12:56:35 Atrial flutter 6794010 Active 2018 Janki hernandez [place] - [facility] 9 12:57:24 Acute renal insufficien cy 577400535 Active 2018 Janki hernandez [place] - [facility] 9 12:57:35 Acute injury of kidney 3356549119764 4108 Active 2018 Janki hernandez, [place] - [facility] 9 12:58:30 Chronic combined systolic and diastolic heart failure 1414340855937 00 Active 2018 Janki hernandez, [place] - [facility] 9 12:59:17 Fatigue 74367583 Active 2018 Cassandra hernandez, [place] - [facility] 9 14:00:01 Dyslipidemi a 159719699 Active 2018 Cassandra hernandez, [place] - [facility] 9 14:04:13 Coronary arterioscle rosis 57047388 Active 2018 Tacho Whitman [facility], [place] - [facility] 9 15:48:28 Problem Notes None recorded. Procedures Surgical History None recorded. Imaging Results Imaging Date Name Status LastModified by Organization Details LastModified Time 12/29/2018 electrocardiogram completed [email or web address] Informa tion not available 01/20/2019 17:56:12 12/30/2018 US, duplex, venous, extremity, complete completed [email or web address] Information not available 01/26/2019 16:08:38 12/29/2018 XR, chest, 1 view completed Informa tion not available 01/26/2019 16:10:30 12/29/2018 CT, angiogram, chest, w/ contrast completed [email or web address] Information not available 01/26/2019 16:13:26 12/30/2018 US, echocardiogram completed [email or web address] Inform ation not available 01/26/2019 16:14:38 01/29/2019 treadmill nuclear stress test (PROC) completed [email or web address] Information not available 02/17/2019 09:45:08 02/16/2019 electrocardiogram completed [email or web address] Informa tion not available 02/23/2019 09:51:08 02/10/2019 electrocardiogram completed Informa tion not available 02/24/2019 16:20:42 02/10/2019 electrocardiogram completed Informa tion not available 02/24/2019 16:22:39 Procedure Notes None recorded. Medical Equipment None Reported. Allergies No known drug allergies Medications Name Sig Start Date Stop Date Status Note LastModified by Organization Details LastModified Time furosemid e 40 mg tablet Take 1 tablet every day by oral route. 03/11 completed Not Available Not Available Not Available atorvasta tin 20 mg tablet Take 1 tablet every day by oral route at bedtime. 2018 active Not Available Not Available Not Avai lable amiodaron e 200 mg tablet Take 1 tablet twice a day by oral route. active amio 200 mg qd 02/16/19j l Not Available Not Available Not Available meloxicam 15 mg tablet 02/16 completed Not Available Not Available Not Available lisinopri l 20 mg tablet Take 1 tablet every day by oral route as directed . active Not Available Not Available No t Available metoprolo l succinate ER 100 mg tablet,ex tended release 24 hr Take 1 tablet twice a day by oral route. active Not Available Not Available No t Available aspirin 81 mg tablet,de layed release Take 1 tablet every day by oral route. active Not Available Not Available No t Available spironola ctone 25 mg tablet Take 0.5 tablets every day by oral route. 2018 active Not Available Not Available Not Avai lable meloxicam 7.5 mg tablet Take 1 tablet every day by oral route. 02/16 completed NO LONGER TAKING;A L 01/20/19 Not Available Not Available Not Available magnesium oxide 400 mg (241.3 mg magnesium ) tablet Take 1 tablet twice a day by oral route. 2018 active Not Available Not Available Not Avai lable lisinopri l 10 mg tablet Take 1 tablet every day by oral route. 01/20 completed Not Available Not Available Not Available Magnesium -Oxide 400 mg tablet Take 1 tablet every day by oral route. 02/16 completed Not Available Not Available Not Available Xarelto 20 mg tablet Take 1 tablet every day by oral route. active 01/20/19 4 bottles given - tg Not Available Not Available Not Available Digox 250 mcg (0.25 mg) tablet Take 1 tablet every day by oral route as directed . active Not Available Not Available No t Available Vitals Date Recorded Body weight Body mass index (BMI) Body height Heart rate Oxygen saturation Oxygen saturation in Arterial blood by Pulse oximetry Systolic blood pressure Diastolic blood pressure Provider Name and Address Organization Details Last Updated DateTime 9 307242. 44 g 40.8 kg/m2 193.04 cm 79 /min 95 % 95 % 112 mm[Hg] 90 mm[Hg] Arti Yingehr [facility] 9 11:22:50 Date Recorded Body height Body mass index (BMI) Body weight Heart rate Oxygen saturation Oxygen saturation in Arterial blood by Pulse oximetry Provider Name and Address Organization Details Last Updated DateTime 9 193.04 cm 40.4 kg/m2 633425. 67 g 145 /min 99 % 99 % Osbaldo Doroteo [facility] 9 14:20:42 Date Recorded Systolic blood pressure Diastolic blood pressure Provider Name and Address Organization Details Last Updated DateTime 02/10/2019 98 mm[Hg] 80 mm[Hg] Arti [facility] 02/10/2019 15:39:04 Date Recorded Body height Provider Name an d Address Organization Details Last Updated DateTime 02/16/2019 193.04 cm Nati Stanley [facility] 02/16/2019 11:39:20 Date Recorded Body mass index (BMI) Body weight Respiratory rate Heart rate Oxygen saturation Oxygen saturation in Arterial blood by Pulse oximetry Systolic blood pressure Diastolic blood pressure Provider Name and Address Organization Details Last Updated DateTime 9 40.2 kg/m2 242451. 48 g 18 /min 71 /min 98 % 98 % 124 mm[Hg] 80 mm[Hg] [facility] 9 12:06:36 Date Recorded Body height Body mass index (BMI) Body weight Heart rate Respiratory rate Oxygen saturation Oxygen saturation in Arterial blood by Pulse oximetry Systolic blood pressure Diastolic blood pressure Provider Name and Address Organization Details Last Updated DateTime 9 193.04 cm 39.7 kg/m2 062667. 11 g 76 /min 18 /min 98 % 98 % 124 mm[Hg] 76 mm[Hg] [facility] 9 15:11:19 Social History Question Answer Notes LastModified by Organizat ion Details LastModified Time Tobacco Smoking Status Never Smoker Not Available [facility] 06/06/2020 03:30:41 What Is Your Level Of Alcohol Consumption? None [id number] Information not available 06/06/2020 What Is Your Level Of Caffeine Consumption? None [id number] Information not available 06/06/2020 How Much Tobacco Do You Chew? None [id number] Information not available 06/06/2020 What Type Of Diet Are You Following? REGULAR [id number] Information not available 06/06/2020 Which Illicit Or Recreational Drugs Have You Used? No [id number] Information not available 06/06/2020 What Is Your Occupation? Retired [id number] Information not available 06/06/2020 Live Alone Or With Others? With Others Information not available 01/20/2019 Marital Status Informatio n not available 01/20/2019 What Was The Date Of Your Most Recent Tobacco Screening? 02/16/2019 [id number] Information not available 06/06/2020 How Many Children Do You Have? 3 [id number] Information not available 06/06/2020 How Much Tobacco Do You Smoke? No [id number] Information not available 06/06/2020 Sex: Unknown Functional Status Question Answer Note LastModified by Organization D etails LastModified Time What is your exercise level? None [id number] Information not available 06/06/2020 Mental Status None recorded. Family History Relationship Description Onset Age of this Age Resolved Age Notes LastModified by Organization Details LastModified Time Father Myocardial infarction 72 72 [email or web address] Not available 01/17 11:12:50 Mother Malignant tumor of colon 90 91 [email or web address] Not available 2018 11:13:16 Medical History Condition Response Hypertension Y Congenital Heart Disease Y Kidney Disease Y Atrial Flutter Y Past Encounters Encounter ID Performer Location Encounter Start Date Encounter Closed Date Diagnosis/Indication Diagnosis SNOMED-CT Code Diagnosis ICD10 Code Diagnosis Note [id number] [address] [place] OFFICE [address] [place] [address] 01/20/2019 10:30:36 02/15/2019 15:29:07 Acute injury of kidney 4422477508 4694469 N17.9 01/14/19: BUN 24, Cr 1.470/: BUN 20 , CR 1.20 On Lasix 40 mg QD but will need to keep on for now given his HF-rEF. Consider nephrology referral for suspected cardio/vlad al syndrome. Chronic co mbined systolic and diastolic heart failure 8042131035 82248 I50.42 He underwent an Echocardio gram showing eccentric LVH with moderate enlargemen t of the LV. Moderate to severe LVSF. EF 30-35% as well as grade 3-4 diastolic dysfunctio n with mild RV hypokinesi s. Will obtain Treadmill Myoview Stress Test to look for any ischemia. Has a high Kremmling Risk score. Has Known CAD and/or CAD risk equivalent . Continue maximal medical treatment and risk factor modificati on Atrial flutter 5818820 I 48.92 NSR today at a controlled rate. Will continue Dig and BB. On Xarelto for anticoagul ation. Recent chest CT and venous doppler negative for PE and DVT. DO NOT HOLD MEDICATION S PRIOR TO STRESS TEST Essential hypertension 88382633 I10 Well controlled . Continue current regimen. Fatigue 22005417 R53.83 secondary to severe heart failure but needs TMNST to rule out ischemic cause. Continue maximal medical treatment and risk factor modificati on. Obtain FLP from recent hospitaliz ation. Continue BB. On Xarelto for anticoagul ation for PAF. Dyslipidemia 195571284 E 78.5 Needs to keep LDL less than 70, and HDL more than 40 Will get lipid profile results from recent hospitaliz ation. [id number] Tacho Whitman [place] OFFICE [facility] [place] [address] 02/10/2019 14:05:56 02/10/2019 16:23:34 Chronic combined systolic and diastolic heart failure 7695581301 45965 I50.42 He underwent an Echocardio gram showing eccentric LVH with moderate enlargemen t of the LV. Moderate to severe LV systolic dysfunctio n. EF 30-35% as well as grade 3-4 diastolic dysfunctio n with mild RV hypokinesi s. Had Exercise nuclear stress test 02/10/19: negative for ischemia, fixed defect consistent with old inferior IA, LVEF 26%. Stress test suggest ischemic cardiomyop athy. Consider cardiac CTA of [facility] to evaluate for extent of CAD given abnormal stress test with evidence of old inferior IA and severe LV systolic dysfunctio n, but Cr 1.5 recently. Obtain FLP. Continue maximal medical treatment and risk factor modificati on. Begin cardiac rehab pending rhythm control. Consider Aldactone if Cr stabilizes . Discussed [facility] but patient not interested at present despite risks/bene fits. Fatigue 78293702 R53.83 secondary to severe heart failure Continue maximal medical treatment and risk factor modificati on. Obtain FLP from recent hospitaliz ation. Continue BB. On Xarelto for anticoagul ation for PAF. Atrial flutter 6864255 I 48.92 In atrial flutter with 2:1 block, 146 bpm 02/10/19, which spontaneou sly slowed to 75 bpm in office. Will continue Dig and BB. On Xarelto for anticoagul ation. Recent chest CT and venous doppler negative for PE and DVT. Obtain digoxin level, CMP, Mg, TSH. Continue amiodarone 200 mg bid but anticipate reduction to 200 mg qd in coming weeks. Increased to metoprolol succinate 100 mg bid 02/10/19. Acute inju ry of kidney 7685750595 9821400 N17.9 01/14/19: BUN 24, Cr 1.470: BUN 20 , CR 1.20 On Lasix 40 mg QD but will need to keep on for now given his HF-rEF. Consider nephrology referral for suspected cardio/vlad al syndrome. Essential hypertension 04591617 I10 Well controlled . Continue current regimen. Dyslipidemia 542902520 E 78.5 Needs to keep LDL less than 70, and HDL more than 40 Will get lipid profile. [id number] Tacho Ch[address]al Office [address] [address] 02/16/2019 11:30:46 02/16/2019 13:43:04 Chronic combined systolic and diastolic heart failure 8344214465 12733 I50.42 He underwent an Echocardio gram showing eccentric LVH with moderate enlargemen t of the LV. Moderate to severe LV systolic dysfunctio n. EF 30-35% as well as grade 3-4 diastolic dysfunctio n with mild RV hypokinesi s. Had Exercise nuclear stress test 02/10/19: negative for ischemia, fixed defect consistent with old inferior IA, LVEF 26%. Stress test suggest ischemic cardiomyop athy. Obtain [facility] at [place] to evaluate for extent of CAD given abnormal stress test with evidence of old inferior IA and severe LV systolic dysfunctio n. Had Cr 1.5 recently when presented with CHF, but Cr improved now to 1.33 when off NSAID and with resolution of acute CHF. Continue maximal medical treatment and risk factor modificati on. Began ASA 81 mg qd. Begin cardiac rehab pending rhythm control. Consider Aldactone if Cr stabilizes post-LHC. Discussed [facility] but patient not interested at present despite risks/bene fits. Fatigue 74269418 R53.83 secondary to severe heart failure Continue maximal medical treatment and risk factor modificati on. Atrial flutter 0238234 I 48.92 In atrial flutter with 2:1 block, 146 bpm 02/10/19, which spontaneou sly slowed to 75 bpm in office.On 02/16/19, remains in atrial flutter with 4:1 block, 75 bpm, on EKG. Will continue Dig and BB. On Xarelto for anticoagul ation. Recent chest CT and venous doppler negative for PE and DVT. Obtain digoxin level, CMP, Mg, TSH. Increased to metoprolol succinate 100 mg bid 02/10/19. Reduced to amiodarone 200 mg qd 02/16/19. Increased to MgOxide 400 mg bid for Mg 1.8 02/16/19. Acute inju ry of kidney 3945630075 7814260 N17.9 Had Cr 1.47 recently, but Cr improved now to 1.33 02/10/19 when off NSAID and with resolution of acute CHF.: BUN 24, Cr 1.4705/: BUN 20 , CR 1.20 On Lasix 40 mg QD but will need to keep on for now given his HF-rEF. Consider nephrology referral for suspected cardio/vlad al syndrome. Essential hypertension 44851871 I10 Well controlled . Continue current regimen. Dyslipidemia 466612467 E 78.5 Needs to keep LDL less than 70, and HDL more than 40 Had 02/10/19 FLP: TC 133, HDL 26, TR 165, LDL 81. [id number] Tacho Chahal Office [address] [place] [address] 03/11/2019 14:46:26 03/11/2019 16:39:33 Chronic combined systolic and diastolic heart failure 0220284681 67783 I50.42 He underwent an Echocardio gram 12/2018 showing eccentric LVH with moderate enlargemen t of the LV. Moderate to severe LV systolic dysfunctio n. EF 30-35% as well as grade 3-4 diastolic dysfunctio n with mild RV hypokinesi s. Had Exercise nuclear stress test 02/10/19: negative for ischemia, fixed defect consistent with old inferior IA, LVEF 26%. Had CATH done in 02/25/19 revealed no significan t coronary artery disease. Dilated left ventricle with moderate-t o-severe left ventricula r systolic dysfunctio n. (Had LAD with minimal irregulari ty distally, 40% narrowing. ) Continue maximal medical treatment and risk factor modificati on. Recommende d cardiac rehab but patient does not want despite discussion of risks and benefits. Began Aldactone 12.5 mg qd 03/11/19. Stopped Lasix 40 mg qd 03/11/19 as appears euvolemic. BMP, Mg in 3.5 wks. Discussed [facility] but patient not interested at present despite risks/bene fits. Fatigue 18214231 R53.83 secondary to severe heart failure Continue maximal medical treatment and risk factor modificati on. Atrial flutter 2121679 I 48.92 In atrial flutter with 2:1 block, 146 bpm 02/10/19, which spontaneou sly slowed to 75 bpm in office.On 02/16/19, remains in atrial flutter with 4:1 block, 75 bpm, on EKG.On 03/11/19, HR 76 bpm. Will continue Dig and BB. On Xarelto for anticoagul ation. Recent chest CT and venous doppler negative for PE and DVT. Increased to metoprolol succinate 100 mg bid 02/10/19. Reduced to amiodarone 200 mg qd 02/16/19. Increased to MgOxide 400 mg bid for Mg 1.8 02/16/19. Obtained normal digoxin level and normal TSH 02/2019. DIscussed possibilit y of atrial flutter ablation risks and benefits and he prefers to continue with medical therapy at present. Acute inju ry of kidney 5874160554 9490799 N17.9 Had 02-25-2019 : CR 1.20 .Had Cr 1.47 recently, but Cr improved to 1.33 02/10/19 when off NSAID and with resolution of acute CHF.: BUN 24, Cr 1.470: BUN 20 , CR 1.20 Essential hypertension 26219805 I10 Well controlled . Continue current regimen. Dyslipidemia 739491273 E 78.5 Needs to keep LDL less than 70, and HDL more than 40 Had 02/10/19 FLP: TC 133, HDL 26, TR 165, LDL 81. Began atorvastat in 20 mg qHS 03/11/19. FLP 1 mo. Coronary arteriosclerosis 74180554 I25.10 Mild. Had CATH done in 02/25/19 revealed no significan t coronary artery disease. Dilated left ventricle with moderate-t o-severe left ventricula r systolic dysfunctio n. (Had LAD with minimal irregulari ty distally, 40% narrowing. ) Continue ASA 81 mg qd. Needs to keep LDL less than 70, and HDL more than 40. Health Concerns Section Related Observation LastModified by Organization Detai ls LastModified Time None Recorded Concern Status LastModified by Organization Details LastModified Time None Recorded Advance Directives Directive None Recorded Payers Encounter Date Sequence Insurance Name Policy Number Policy Harkins Covered Member ID Harkins Member ID Guarantor Name 01/20/2019 1 [place] Roland Valenzuela [id number] Roland Valenzuela 01/20/2019 2 [place] [id number] Roland Valenzuela [id number] Roland Valenzuela 02/10/2019 1 [place] Valenzuela [id number] Roland Valenzuela 02/10/2019 2 [place] [id number] Roland Valenzuela [id number] Roland Valenzuela 02/16/2019 1 [place] Roland Valenzuela [id number] Roland Valenzuela 02/16/2019 2 [place] [id number] Roland Valenzuela [id number] 20 Roland Valenzuela 03/11/2019 1 [place] Roland Valenzuela [id number] Roland Valenzuela 03/11/2019 2 [place] [id number] Roland Valenzuela [id number] Roland Valenzuela Notes Date Note Type Note Provider Name and Address Organization Details Recorded Time 01/20/2019 text/html 01/20/19 CC: Fatigue, dyspena 63 year-old white male with a PMH of paroxysmal atrial fibrillation, combined systolic and diastolic heart failure, hypertension, obesity present today for hospital follow-up. Natalie presented to [facility] on 12/29/18 with complaints of dyspnea and a rapid heart rate. Denied any chest pain or dizziness. He was originally evaluated by his PCP who advised him to go to the nearest ED for further evalutation for his complaints. EKG was obtained revealing atrial flutter with rapid ventricular response, incomplete RBBB, poor R progression, nonspecific ST changes. He was started on a diltiazem gtt initially for rate control. D-dimer was elevated at 1.45. Chest CT and venous doppler was obtained revealing no evidence of embolis. Troponin I negative. He was also found to be in YESSICA. He underwent an Echocardiogram showing eccentric LVH with moderate enlargement of the LV. Moderate to severe LVSF. EF 30-35% as well as grade 3-4 diastolic dysfunction with mild RV hypokinesis. DUE TO LV DYSFUNCTION, diltiazem was d/c and he was d/c home on metoprolol, Digoxin and Amiodarone as well as Lisinopril, Furosemide and Mag. Was started on Xarelto for anticoagulation. Tolerating well. He has no prior history of an arrhythmia before this most recent dx. No known CAD, prior IA, valvular heart disease, TIA, CVA. Has has no previous cardiac testing, evaluation or work-up prior to his most recent hospitalization. Home BP of 125/70-75. HR 65-70. HR 122 with activit. Lost 16 lbs over the last 3 weeks. Reports more fatigue since he was discharged from the hospital that he believes is from his medications. No chest pain. No SOB at rest. Reports exertional dyspena. Reports orthopnea and occasional PND. No dizziness, syncope or near-syncope. Improvement of palpitations. Mild leg edema. No major bleeding events. Tolerating new medications well. Results from this visit, or from the past:01/14/19: Na 139, BUN 24, Cr 1.47, K 4.905/: HB 12.3, HT 38.505/: Na 140 ,K 4.4 , CL 105 ,CO2 27, GLU 102, BUN 20 , CR 1.20,Labs: 12/19/18 Hgb 13.4, Hct 42.9, Na 145, K 4.5, BUN 23, Cr 1.50, Glu 97 01/14/2019 GL 123 BUN 24 CR 1.47 NA 139 K 4.9 CH 104 CO2 26 CA 9.6 Nunu [facility] 02/15/2019 15:29:06 02/10/2019 text/html 02/10/19 CC: Fatigue, dyspnea 63 year-old white male with a PMH of paroxysmal atrial fibrillation, atrial flutter with RVR, combined systolic and diastolic heart failure, hypertension, obesity presents today for follow-up dyspnea. Patient presented to [facility] on 12/29/18 with complaints of dyspnea and a rapid heart rate. Denied any chest pain or dizziness. He was originally evaluated by his PCP who advised him to go to the nearest ED for further evalutation for his complaints. EKG was obtained revealing atrial flutter with rapid ventricular response, incomplete RBBB, poor R progression, nonspecific ST changes. He was started on a diltiazem gtt initially for rate control. D-dimer was elevated at 1.45. Chest CT and venous doppler was obtained revealing no evidence of embolis. Troponin I negative. He was also found to be in YESSICA. He underwent an Echocardiogram 12/2018 showing eccentric LVH with moderate enlargement of the LV. Moderate to severe LV systolic dysfunction, EF 30-35% as well as grade 3-4 diastolic dysfunction with mild RV hypokinesis. DUE TO LV DYSFUNCTION, diltiazem was d/c and he was d/c home on metoprolol, Digoxin and Amiodarone as well as Lisinopril, Furosemide and Mag. Was started on Xarelto for anticoagulation. Tolerating well. He has no prior history of an arrhythmia before this most recent dx. No known CAD, prior IA, valvular heart disease, TIA, CVA. Has has no previous cardiac testing, evaluation or work-up prior to his most recent hospitalization. Home BP of 125/70-75. HR 65-70. HR 122 with activit. Lost 16 lbs over the last 3 weeks. Reports more fatigue since he was discharged from the hospital that he believes is from his medications. No chest pain. No SOB at rest. Reports exertional dyspena. Reports orthopnea and occasional PND. No dizziness, syncope or near-syncope. Improvement of palpitations. Mild leg edema. No major bleeding events. Tolerating new medications well. Results from this visit, or from the past: BMP 01/14/2019 GL 123 BUN 24 CR 1.47 NA 139 K 4.9 CH 104 CO2 26 CA 9.6 01/14/19: Na 139, BUN 24, Cr 1.47, K 4.9012/31/18: HB 12.3, HT 38.505: Na 140 ,K 4.4 , CL 105 ,CO2 27, GLU 102, BUN 20 , CR 1.20,Labs: 12/19/18 Hgb 13.4, Hct 42.9, Na 145, K 4.5, BUN 23, Cr 1.50, Glu 97 01/14/2019 GL 123 BUN 24 CR 1.47 NA 139 K 4.9 CH 104 CO2 26 CA 9.6 12/29/18 EKG: atrial flutter/ tachycardia with rapid ventricular reponse. incomplete RBBB. Borderline R wave progression, anterior leads 12/29/18 CHEST ONE VIEW: mild bibasilar atelctasis. 12/29/18 CTA: no large central pulmonary embolism. evaluation of lower lobe peripheral pulmonary arteries limited by motion. moderate bilateral pleural effusions. Groundglass opacities in the lower lobes, most likely atelectasis. 12/30/18 LEO DUP: no lower extremity deep venous thrombosis bilaterally Tacho hernandez [place] [facility] 02/10/2019 16:23:31 02/16/2019 text/html 02/16/19 CC: Fatigue, dyspnea 63 year-old white male with history of paroxysmal atrial flutter with RVR, combined systolic and diastolic heart failure, hypertension, obesity presents today for follow-up dyspnea. Patient presented to [facility] on 12/29/18 with complaints of dyspnea and a rapid heart rate. Denied any chest pain or dizziness. He was originally evaluated by his PCP who advised him to go to the nearest ED for further evalutation for his complaints. EKG was obtained revealing atrial flutter with rapid ventricular response, incomplete RBBB, poor R progression, nonspecific ST changes. He was started on a diltiazem gtt initially for rate control. D-dimer was elevated at 1.45. Chest CT and venous doppler was obtained revealing no evidence of embolis. Troponin I negative. He was also found to be in YESSICA. He underwent an Echocardiogram 12/2018 showing eccentric LVH with moderate enlargement of the LV. Moderate to severe LV systolic dysfunction, EF 30-35% as well as grade 3-4 diastolic dysfunction with mild RV hypokinesis. Had a stress test 02/10/19: negative for ischemia, fixed defect consistent with old inferior IA, LVEF 26%. DUE TO LV DYSFUNCTION, diltiazem was d/c and he was d/c home on metoprolol, Digoxin and Amiodarone as well as Lisinopril, Furosemide and Mag. Was started on Xarelto for anticoagulation. Tolerating well. He has no prior history of an arrhythmia before this most recent dx. No known CAD, prior IA, valvular heart disease, TIA, CVA. Has has no previous cardiac testing, evaluation or work-up prior to his most recent hospitalization. Home BP of 125-130/70-75. HR 65-70. HR 122 with activit. Lost 2 lbs over the last 3 weeks. Reports less fatigue. Reports mild left chest pain for 2 seconds only. No SOB at rest. Reports exertional dyspena. Reports orthopnea and occasional PND. No dizziness, syncope or near-syncope. Improvement of palpitations. Mild leg edema, improving. No major bleeding events. Tolerating new medications well. Results from this visit, or from the past: 02/10/19 CMP: GL 110, CR 1.33, B 17, NA 142, K 4.7, CH 108, CO2 23, AST 14, ALT, 17, MG 1.8, TSH 1.80, Digoxin 0.8 02/10/19 FLP: TC 133, HDL 26, TR 165, LDL 81 BMP 01/14/2019 GL 123 BUN 24 CR 1.47 NA 139 K 4.9 CH 104 CO2 26 CA 9.6 01/14/19: Na 139, BUN 24, Cr 1.47, K 4.9 01/01/19: Na 140 ,K 4.4 , CL 105 ,CO2 27, GLU 102, BUN 20 , CR 1.20,Labs: 12/19/18 Hgb 13.4, Hct 42.9, Na 145, K 4.5, BUN 23, Cr 1.50, Glu 97 12/31/18: HB 12.3, HT 38.5vitamin B12 + folate, serum or blood 12-31-2018 Vitamin B12 295 Folic acid 7.6CBC 12/31/2018 WBC 8.5 RBC 4.23 HGB 12.3 HCT 38.5 PLT 24601/14/2019 GL 123 BUN 24 CR 1.47 NA 139 K 4.9 CH 104 CO2 26 CA 9.6 vitamin B12 + folate, serum or blood 12-31-2018 Vitamin B12 295 Folic acid 7.6 12/29/18 EKG: atrial flutter/ tachycardia with rapid ventricular reponse. incomplete RBBB. Borderline R wave progression, anterior leads ECHO 12/30/2018: eccentric LVH with moderate enlargement of the LV. Moderate to severe LV systolic dysfunction, EF 30-35% as well as grade 3-4 diastolic dysfunction with mild RV hypokinesis. stress test 02/10/19: negative for ischemia, fixed defect consistent with old inferior IA, LVEF 26%. 12/30/18 LEO DUP: no lower extremity deep venous thrombosis bilaterally 12/29/18 CHEST ONE VIEW: mild bibasilar atelctasis. 12/29/18 CTA: no large central pulmonary embolism. evaluation of lower lobe peripheral pulmonary arteries limited by motion. moderate bilateral pleural effusions. Groundglass opacities in the lower lobes, most likely atelectasis. 12/30/18 LEO DUP: no lower extremity deep venous thrombosis bilaterally Tacho Whitman [facility] [place] [facility] 02/16/2019 13:39:03 03/11/2019 text/html 03/11/19 CC: Fatigue, dyspnea 63 year-old white man with history of paroxysmal atrial flutter with RVR, combined systolic and diastolic heart failure, hypertension, obesity presents today for follow-up dyspnea. Patient presented to [facility] on 12/29/18 with complaints of dyspnea and a rapid heart rate. Denied any chest pain or dizziness. He was originally evaluated by his PCP who advised him to go to the nearest ED for further evaluation for his complaints. EKG was obtained revealing atrial flutter with rapid ventricular response, incomplete RBBB, poor R progression, nonspecific ST changes. He was started on a diltiazem gtt initially for rate control. D-dimer was elevated at 1.45. Chest CT and venous doppler was obtained revealing no evidence of embolis. Troponin I negative. He was also found to be in YESSICA. He underwent an Echocardiogram 12/2018 showing eccentric LVH with moderate enlargement of the LV. Moderate to severe LV systolic dysfunction, EF 30-35% as well as grade 3-4 diastolic dysfunction with mild RV hypokinesis. Had a stress test 02/10/19: negative for ischemia, fixed defect consistent with old inferior IA, LVEF 26%. DUE TO LV DYSFUNCTION, diltiazem was d/c and he was d/c home on metoprolol, Digoxin and Amiodarone as well as Lisinopril, Furosemide and Mag. Was started on Xarelto for anticoagulation. Tolerating well. He has no prior history of an arrhythmia before this most recent dx. No known CAD, prior IA, valvular heart disease, TIA, CVA. Has has no previous cardiac testing, evaluation or work-up prior to his most recent hospitalization. Home BP of 125-130/70-75. HR 65-70. HR 122 with activit. Lost 2 lbs over the last 3 weeks. Reports less fatigue. Reports no chest pain. No SOB at rest. Reports less exertional dyspena. Reports orthopnea and occasional PND. No dizziness, syncope or near-syncope. Improvement of palpitations. Leg edema resolved. No major bleeding events. Tolerating new medications well. Had CATH done in 02/25/19 revealed no significant coronary artery disease. Dilated left ventricle with [id number] left ventricular systolic dysfunction. (Had LAD with minimal irregularity distally, 40% narrowing.) Reports home BP 130/80. Results from this visit, or from the past: 03/01/19WBC 8.9, HGB 14.1, HCT 43.8, PLT 269BMP, serum or plasma 02-25-2019 NA 138, K 4.7, CL 105, CO2 26, BUN 17, CR 1.20, GLU 92 02/10/19 CMP: GL 110, CR 1.33, B 17, NA 142, K 4.7, CH 108, CO2 23, AST 14, ALT, 17, MG 1.8, TSH 1.80, Digoxin 0.8 02/10/19 FLP: TC 133, HDL 26, TR 165, LDL 81 BMP 01/14/2019 GL 123 BUN 24 CR 1.47 NA 139 K 4.9 CH 104 CO2 26 CA 9.6 01/14/19: Na 139, BUN 24, Cr 1.47, K 4.9 01/01/19: Na 140 ,K 4.4 , CL 105 ,CO2 27, GLU 102, BUN 20 , CR 1.20,Labs: 12/19/18 Hgb 13.4, Hct 42.9, Na 145, K 4.5, BUN 23, Cr 1.50, Glu 97 12/31/18: HB 12.3, HT 38.5vitamin B12 + folate, serum or blood 12-31-2018 Vitamin B12 295 Folic acid 7.6CBC 12/31/2018 WBC 8.5 RBC 4.23 HGB 12.3 HCT 38.5 PLT 24601/14/2019 GL 123 BUN 24 CR 1.47 NA 139 K 4.9 CH 104 CO2 26 CA 9.6 vitamin B12 + folate, serum or blood 12-31-2018 Vitamin B12 295 Folic acid 7.6 EKG 02/16/19 Atrial Flutter with moderate rate. Old anterior infarct ,Non specific T abnormality 02/10/19 EKG: Atrial flutter with 2:1 block, incomplete RBBB. Poor R progression in chest leads. Left anterior hemiblock. 12/29/18 EKG: atrial flutter/ tachycardia with rapid ventricular reponse. incomplete RBBB. Borderline R wave progression, anterior leads ECHO 12/30/2018: eccentric LVH with moderate enlargement of the LV. Moderate to severe LV systolic dysfunction, EF 30-35% as well as grade 3-4 diastolic dysfunction with mild RV hypokinesis. stress test 02/10/19: negative for ischemia, fixed defect consistent with old inferior IA, LVEF 26%. 01/29/19 TDM-Negative stress test for ischemia. Fixed defect consistent with old infarction in inferior area. Severe LV systolic dysfunction. LVEF 26%. Had CATH done in 02/25/19 revealed no significant coronary artery disease. Dilated left ventricle with [id number] left ventricular systolic dysfunction. (Had LAD with minimal irregularity distally, 40% narrowing.) 12/30/18 LEO DUP: no lower extremity deep venous thrombosis bilaterally 12/29/18 CHEST ONE VIEW: mild bibasilar atelctasis. 12/29/18 CTA: no large central pulmonary embolism. evaluation of lower lobe peripheral pulmonary arteries limited by motion. moderate bilateral pleural effusions. Groundglass opacities in the lower lobes, most likely atelectasis. 12/30/18 LEO DUP: no lower extremity deep venous thrombosis bilaterally 12/29/18 CHEST ONE VIEW: mild bibasilar atelctasis. KATHIA [facility] 03/11/2019 16:35:35
[2024-10-25 07:57] LABS: Estimated Glomerular Filt Rate 46
== END 2024-10-25 07:24 | disposition home or self-care (01) ==
PROVIDERS: PCP Family Medicine Adolescent Medicine; Visit Provider Internal Medicine Cardiovascular Disease
DX: I71.21 Aneurysm of the ascending aorta, without rupture (principal)
CPT/HCPCS: 71275; Q9967

== ENCOUNTER 2025-01-13 07:26 | Outpatient (CLI) | payer MEDICARE, SELFPAY ==
--- NOTE | ~2025-01-13 | US_ITS ---
Limited Abdominal Sonogram: Real-time sonographic imaging of the right upper quadrant was performed. Clinical History: Nausea Findings: The liver appears normal with no evidence of mass lesion or bile duct dilatation. Main por latrice vein demonstrates normal direction of flow. The gallbladder is well distended, and appears normal with no evidence of gallstone or wall thickening. The common bile duct measures 4 mm. The visualize d pancreas, aorta, and IVC are unremarkable. Impression: No significant abnormality seen. Reviewed, dictated and finalized at location M. Impression: No significant abnormality seen.
--- OUTSIDE RECORDS SUMMARY | 2025-01-13 07:29 | XMS_ITS | Data Portability ---
Author Organization [place] - [facility] OFFICE Address [address] [place] [address] Care Team Providers Care Communications Department Chair Name Role Phone LILA CASTORENA Primary Care [...] current medications, and medical follow-up as noted. [email or web address] Not available 02/10/2019 16:19:43 02/16/2019 02/16/2019 Discussed with patient findings, diagnosis, and prognosis. Discussed evaluation and treatment options including risks and benefits with patient, and patient expressed understanding. The following interventions were recommended: heart healthy low-fat, low-sodium diet, avoid strenuous exercise pending completion of cardiovascular evaluation, maintain appropriate weight, continue current medications, and medical follow-up as noted. [email or web address] Not available 02/16/2019 11:38:53 03/11/2019 03/11/2019 Discussed with patient findings, diagnosis, and prognosis. Discussed evaluation and treatment options including risks and benefits with patient, and patient expressed understanding. The following interventions were recommended: heart healthy low-fat, low-sodium diet, begin cardiac rehabilitation program, maintain appropriate weight, continue current medications, and medical follow-up as noted. [email or web address] Not available 03/11/2019 16:32:01 Plan of Treatment Reminders Order Date Submit Date Provider Last Modified By Organization Details Last Modified Time Details Appointments None recorded. Lab None recorded. Referral None recorded. Procedures None recorded. Surgeries None recorded. Imaging electrocar diogram 2018 019 GREG Not available 9 13:43:51 Medication Orders spironolac tone 25 mg tablet 2018 [facility] #[id number], [address], [place], [place], [id number], 9 16:35:05 atorvastat in 20 mg tablet 2018 [facility] #55503, [address], [place], [place], [id number], 9 16:35:05 magnesium oxide 400 mg (241.3 mg magnesium) tablet 2018 [facility] #71671, [address], [place], [place], [id number], 9 13:37:40 magnesium oxide 400 mg (241.3 mg magnesium) tablet 2018 019 [facility] #05954, [address], [place], [place], [id number], 9 13:26:57 metoprolol succinate ER 100 mg tablet,ext ended release 24 hr 2018 [facility] #80113, [address], [place], [place], [id number], 9 16:23:23 Patient TargetsNo targets recorded. Patient Instructions Encounter Date Encounter Id Patient Instructions Last Modified By Organization Details Last Modified Time 01/20/2019 [id number] high blood press ure: care instructions Not [...] 11:56:48 Patient was seen and evaluated by Cassandra REYES. Plan of care was discussed with collaborating physician. Note cosigned by Francisco Gamboa MD. Not available 01/20/2019 11:56:41 02/10/2019 [id number] high blood press ure: care instructions [email or web address] Not available 02/10/2019 16:23:17 learning about h igh blood pressure [email or web address] Not available 02/10/2019 16:23:17 electrical cardioversion: before your procedure [email or web address] Not available 02/10/2019 16:23:17 Electrophysiolog y (EP) Study: Before Your Procedure [email or web address] Not available 02/10/2019 16:23:17 02/16/2019 [id number] high blood press ure: care instructions [email or web address] Not available 02/16/2019 13:37:35 learning about h igh blood pressure [email or web address] Not available 02/16/2019 13:37:35 electrical cardioversion: before your procedure [email or web address] Not available 02/16/2019 13:37:35 Electrophysiolog y (EP) Study: Before Your Procedure [email or web address] Not available 02/16/2019 13:37:35 03/11/2019 [id number] high blood press ure: care instructions [email or web address] Not available 03/11/2019 16:34:58 learning about h igh blood pressure Not available 03/11/2019 16:34:59 electrical cardioversion: before your procedure [email or web address] Not available 03/11/2019 16:34:59 Electrophysiolog y (EP) Study: Before Your Procedure [email or web address] Not available 03/11/2019 16:34:58 Reason for Referral None Reported. Results Created Date Observation Date Name Description Value Unit Range Abnormal Flag Note LastModifiedBy Organization Detail LastModifiedTime 01/21/20 19 12/29/2018 mary powersmonica jamison am No observ ation record ed. [email or web address] Not Available 01/20 17:56:12 01/27/20 19 12/30/2018 US, jake x, joe s, extre mity, compl ete No observ ation record ed. [email or web address] Not Available 01/26 16:08:38 01/27/20 19 12/29/2018 XR, chest , 1 view No observ ation record ed. [email or web address] Not Available 01/26 16:10:30 01/27/20 19 12/29/2018 CT, angio gram, chest , w/ contr ast No observ ation record ed. Not Available 01/26 16:13:26 01/27/20 19 12/30/2018 US, echoc ardio gram No observ ation record ed. [email or web address] Not Available 01/26 16:14:38 02/18/20 19 01/29/2019 tread mill nucle ar stres s test (PROC ) No observ ation record ed. [email or web address] Not Available 2018 09:45:08 02/18/20 19 02/16/2019 elect rocar diogr am No observ ation record ed. [email or web address] Not Available 2018 09:51:08 02/25/20 19 02/10/2019 elect rocar diogr am No observ ation record ed. [email or web address] Not Available 2018 16:20:42 02/25/20 19 02/10/2019 elect rocar diogr am No observ ation record ed. [email or web address] Not Available 2018 16:22:39 Result Notes None recorded. Problems Name Problem SNOMED Code Status Onset Date Resolution Date Notes Provider Name and Address Organization Details Recorded Time Essential hypertensio n 08607966 Active 2018 Janki hernandez [place] - [facility] 9 12:56:35 Atrial flutter 8286507 Active 2018 Janki hernandez [place] - [facility] 9 12:57:24 Acute renal insufficien cy 489274859 Active 2018 Janki hernandez [place] - [facility] 9 12:57:35 Acute injury of kidney 1380317932493 4108 Active 2018 Janki hernandez [place] - [facility] 9 12:58:30 Chronic combined systolic and diastolic heart failure 8455188690094 00 Active 2018 Janki Lucas [facility] 9 12:59:17 Fatigue 64926940 Active 2018 Cassandra Alonso [facility] 9 14:00:01 Dyslipidemi a 894868285 Active 2018 Cassandra Alonso [facility] 9 14:04:13 Coronary arterioscle rosis 03083745 Active 2018 Tacho Whitman [facility] 9 15:48:28 Problem Notes None recorded. Medical Equipment None Reported. [...] Address Organization Details Last Updated DateTime 9 292516. 44 g 40.8 kg/m2 193.04 cm 79 /min 95 % 95 % 112 mm[Hg] 90 mm[Hg] Arti Fountain [facility] 9 11:22:50 Date Recorded Body height Body mass index (BMI) Body weight Heart rate Oxygen saturation Oxygen saturation in Arterial blood by Pulse oximetry Provider Name and Address Organization Details Last Updated DateTime 9 193.04 cm 40.4 kg/m2 160841. 67 g 145 /min 99 % 99 % Osbaldo Sadler [facility] 9 14:20:42 Date Recorded Systolic blood pressure Diastolic blood pressure Provider Name and Address Organization Details Last Updated DateTime 02/10/2019 98 mm[Hg] 80 mm[Hg] Arti Fountain [facility] 02/10/2019 15:39:04 Date Recorded Body height Provider Name an d Address Organization Details Last Updated DateTime 02/16/2019 193.04 cm Nati Stanley [facility] 02/16/2019 11:39:20 Date Recorded Body mass index (BMI) Body weight Respiratory rate Heart rate Oxygen saturation Oxygen saturation in Arterial blood by Pulse oximetry Systolic blood pressure Diastolic blood pressure Provider Name and Address Organization Details Last Updated DateTime 9 40.2 kg/m2 530686. 48 g 18 /min 71 /min 98 % 98 % 124 mm[Hg] 80 mm[Hg] Erlinda Dubois [facility] 9 12:06:36 Date Recorded Body height Body mass index (BMI) Body weight Heart rate Respiratory rate Oxygen saturation Oxygen saturation in Arterial blood by Pulse oximetry Systolic blood pressure Diastolic blood pressure Provider Name and Address Organization Details Last Updated DateTime 9 193.04 cm 39.7 kg/m2 072359. 11 g 76 /min 18 /min 98 % 98 % 124 mm[Hg] 76 mm[Hg] Erlinda Dubois [place] - [facility] 9 15:11:19 Social History Question Answer Notes LastModified by Organizat ion Details LastModified Time Tobacco Smoking Status Never Smoker Not Available [employer] 06/06/2020 03:30:41 What Is Your Level Of Caffeine Consumption? None [id number] Information not available 06/06/2020 How Much Tobacco Do You Chew? None [id number] Information not available 06/06/2020 What Type Of Diet Are You Following? REGULAR [id number] Information not available 06/06/2020 Which Illicit Or Recreational Drugs Have You Used? No [id number] Information not available 06/06/2020 Live Alone Or With Others? With Others Information not available 01/20/2019 Marital Status Informatio n not available 01/20/2019 What Was The Date Of Your Most Recent Tobacco Screening? 02/16/2019 [id number] Information not available 06/06/2020 How Many Children Do You Have? 3 [id number] Information not available 06/06/2020 How Much Tobacco Do You Smoke? No [id number] Information not available 06/06/2020 Sex: Unknown Functional Status Question Answer Note LastModified by Organization D etails LastModified Time What is your level of alcohol consumption? None [id number] Information not available 06/06/2020 What is your occupation? Retired [id number] Information not available 06/06/2020 What is your exercise level? None [id number] Information not available 06/06/2020 Mental Status None [...] SNOMED-CT Code Diagnosis ICD10 Code Diagnosis Note [id number] Francisco Gamboa MD [facility] OFFICE [address] [place] [address] 01/20/2019 10:30:36 02/15/2019 15:29:07 Acute injury of kidney 7839944629 1692284 N17.9 01/14/19: BUN 24, Cr 1.470: BUN 20 , CR 1.20 On Lasix 40 mg QD but will need to keep on for now given his HF-rEF. Consider nephrology referral for suspected cardio/vlad al syndrome. Chronic co mbined systolic and diastolic heart failure 4599778334 53222 I50.42 He underwent an Echocardio gram showing eccentric LVH with moderate enlargemen t of the LV. Moderate to severe LVSF. EF 30-35% as well as grade 3-4 diastolic dysfunctio n with mild RV hypokinesi s. Will obtain Treadmill Myoview Stress Test to look for any ischemia. Has a high Frederic Risk score. Has Known CAD and/or CAD risk equivalent . Continue maximal medical treatment and risk factor modificati on Atrial flutter 6535815 I 48.92 NSR today at a controlled rate. Will continue Dig and BB. On Xarelto for anticoagul ation. Recent chest CT and venous doppler negative for PE and DVT. DO NOT HOLD MEDICATION S PRIOR TO STRESS TEST Essential hypertension 97596325 I10 Well controlled . Continue current regimen. Fatigue 21706298 R53.83 secondary to severe heart failure but needs TMNST to rule out ischemic cause. Continue maximal medical treatment and risk factor modificati on. Obtain FLP from recent hospitaliz ation. Continue BB. On Xarelto for anticoagul ation for PAF. Dyslipidemia 736033842 E 78.5 Needs to keep LDL less than 70, and HDL more than 40 Will get lipid profile results from recent hospitaliz ation. [id number] Tacho Whitman MD [facility] OFFICE [address] [place] [address] 02/10/2019 14:05:56 02/10/2019 16:23:34 Chronic combined systolic and diastolic heart failure 5048389862 87459 I50.42 He underwent an Echocardio gram showing eccentric LVH with moderate enlargemen t of the LV. Moderate to severe LV systolic dysfunctio n. EF 30-35% as well as grade 3-4 diastolic dysfunctio n with mild RV hypokinesi s. Had Exercise nuclear stress test 02/10/19: negative for ischemia, fixed defect consistent with old inferior ID, LVEF 26%. Stress test suggest ischemic cardiomyop athy. Consider cardiac CT[facility] of [facility] to evaluate for extent of CAD given abnormal stress test with evidence of old inferior ID and severe LV systolic dysfunctio n, but Cr 1.5 recently. Obtain FLP. Continue maximal medical treatment and risk factor modificati on. Begin cardiac rehab pending rhythm control. Consider Aldactone if Cr stabilizes . Discussed [facility] but patient not interested at present despite risks/bene fits. Fatigue 09005542 R53.83 secondary to severe heart failure Continue maximal medical treatment and risk factor modificati on. Obtain FLP from recent hospitaliz ation. Continue BB. On Xarelto for anticoagul ation for PAF. Atrial flutter 1810498 I 48.92 In atrial flutter with 2:1 [...] bid 02/10/19. Acute inju ry of kidney 1315545508 7138137 N17.9 01/14/19: BUN 24, Cr 1.470: BUN 20 , CR 1.20 On Lasix 40 mg QD but will need to keep on for now given his HF-rEF. Consider nephrology referral for suspected cardio/vlad al syndrome. Essential hypertension 81046677 I10 Well controlled . Continue current regimen. Dyslipidemia 614418086 E 78.5 Needs to keep LDL less than 70, and HDL more than 40 Will get lipid profile. [id number] MD Christian Whitfield Office [address] [place] [address] 02/16/2019 11:30:46 02/16/2019 13:43:04 Chronic combined systolic and diastolic heart failure 1561273519 26836 I50.42 He underwent an Echocardio gram showing eccentric LVH with moderate enlargemen t of the LV. Moderate to severe LV systolic dysfunctio n. EF 30-35% as well as grade 3-4 diastolic dysfunctio n with mild RV hypokinesi s. Had Exercise nuclear stress test 02/10/19: negative for ischemia, fixed defect consistent with old inferior ID, LVEF 26%. Stress test suggest ischemic cardiomyop athy. Obtain C at [facility] to evaluate for extent of CAD given abnormal stress test with evidence of old inferior ID and severe LV systolic dysfunctio n. Had [...] interested at present despite risks/bene fits. Fatigue 48206804 R53.83 secondary to severe heart failure Continue maximal medical treatment and risk factor modificati on. Atrial flutter 5625521 I 48.92 In atrial flutter with 2:1 [...] 1.8 02/16/19. Acute inju ry of kidney 1046125805 7320118 N17.9 Had Cr 1.47 recently, but Cr improved now to 1.33 02/10/19 when off NSAID and with resolution of acute CHF.: BUN 24, Cr 1.470: BUN 20 , CR 1.20 On Lasix 40 mg QD but will need to keep on for now given his HF-rEF. Consider nephrology referral for suspected cardio/vlad al syndrome. Essential hypertension 71803407 I10 Well controlled . Continue current regimen. Dyslipidemia 113589236 E 78.5 Needs to keep LDL less than 70, and HDL more than 40 Had 02/10/19 FLP: TC 133, HDL 26, TR 165, LDL 81. [id number] MD Christian Whitfield Office [address] [place] [address] 03/11/2019 14:46:26 03/11/2019 16:39:33 Chronic combined systolic and diastolic heart failure 8692077857 58529 I50.42 He underwent an Echocardio gram 12/2018 showing eccentric LVH with moderate enlargemen t of the LV. Moderate to severe LV systolic dysfunctio n. EF 30-35% as well as grade 3-4 diastolic dysfunctio n with mild RV hypokinesi s. Had Exercise nuclear stress test 02/10/19: negative for ischemia, fixed defect consistent with old inferior ID, LVEF 26%. Had CATH done in 02/25/19 [...] interested at present despite risks/bene fits. Fatigue 70356440 R53.83 secondary to severe heart failure Continue maximal medical treatment and risk factor modificati on. Atrial flutter 1158071 I 48.92 In atrial flutter with 2:1 [...] at present. Acute inju ry of kidney 8718790192 7020030 N17.9 Had 02-25-2019 : CR 1.20 .Had Cr 1.47 recently, but Cr improved to 1.33 02/10/19 when off NSAID and with resolution of acute CHF.: BUN 24, Cr 1.470: BUN 20 , CR 1.20 Essential hypertension 93585712 I10 Well controlled . Continue current regimen. Dyslipidemia 964531742 E 78.5 Needs to keep LDL less than 70, and HDL more than 40 Had 02/10/19 FLP: TC 133, HDL 26, TR 165, LDL 81. Began atorvastat in 20 mg qHS 03/11/19. FLP 1 mo. Coronary arteriosclerosis 31801723 I25.10 Mild. Had CATH done in 02/25/19 [...] Recorded Advance Directives Directive None Recorded Payers Insurance Date Sequence Insurance Name Policy Number Policy Harkins Covered Member ID Harkins Member ID Guarantor Name 02/24/2019 1 Team[employer] Roland Valenzuela [id number] Roland Valenzuela 04/04/2019 1 [place] Roland Valenzuela [id number] Roland Bianca 04/04/2019 2 [facility] [id number] Roland Valenzuela [id number] Roland Valenzuela Notes Date Note Type Note Provider Name and Address Organization Details Recorded Time 01/20/2019 text/html 01/20/19 CC: Fatigue, dyspena 63 year-old white male with a PMH of paroxysmal atrial fibrillation, combined systolic and diastolic heart failure, hypertension, obesity present today for hospital follow-up. Natalie presented to [facility] on 12/29/18 with complaints of dyspnea and [...] most recent dx. No known CAD, prior ID, valvular heart disease, TIA, CVA. Has has [...] 104 CO2 26 CA 9.6 Nunu Keller [place], [place] - [facility] 02/15/2019 15:29:06 02/10/2019 text/html 02/10/19 CC: Fatigue, dyspnea 63 year-old white male with a PMH of paroxysmal atrial fibrillation, atrial flutter with RVR, combined systolic and diastolic heart failure, hypertension, obesity presents today for follow-up dyspnea. Patient presented to [facility] on 12/29/18 with complaints of dyspnea and [...] most recent dx. No known CAD, prior ID, valvular heart disease, TIA, CVA. Has has [...] Na 139, BUN 24, Cr 1.47, K 4.90/: HB 12.3, HT 38.505: Na 140 ,K [...] the lower lobes, most likely atelectasis. 12/30/18 SOY DUP: no lower extremity deep venous thrombosis bilaterally Tacho Whitman [place], [place] - [facility] 02/10/2019 16:23:31 02/16/2019 text/html 02/16/19 CC: Fatigue, dyspnea 63 year-old white male with history of paroxysmal atrial flutter with RVR, combined systolic and diastolic heart failure, hypertension, obesity presents today for follow-up dyspnea. Patient presented to [facility] on 12/29/18 with complaints of dyspnea and [...] ischemia, fixed defect consistent with old inferior ID, LVEF 26%. DUE TO LV DYSFUNCTION, diltiazem was d/c and he was d/c home on metoprolol, Digoxin and Amiodarone as well as Lisinopril, Furosemide and Mag. Was started on Xarelto for anticoagulation. Tolerating well. He has no prior history of an arrhythmia before this most recent dx. No known CAD, prior ID, valvular heart disease, TIA, CVA. Has has [...] ischemia, fixed defect consistent with old inferior ID, LVEF 26%. 12/30/18 SOY DUP: no lower extremity deep venous thrombosis bilaterally 12/29/18 CHEST ONE VIEW: mild bibasilar atelctasis. 12/29/18 CTA: no large central pulmonary embolism. evaluation of lower lobe peripheral pulmonary arteries limited by motion. moderate bilateral pleural effusions. Groundglass opacities in the lower lobes, most likely atelectasis. 12/30/18 SOY DUP: no lower extremity deep venous thrombosis bilaterally Tacho Whitman [facility] [place] - [facility] 02/16/2019 13:39:03 03/11/2019 text/html 03/11/19 CC: Fatigue, dyspnea 63 year-old white man with history of paroxysmal atrial flutter with RVR, combined systolic and diastolic heart failure, hypertension, obesity presents today for follow-up dyspnea. Patient presented to [facility] on 12/29/18 with complaints of dyspnea and [...] ischemia, fixed defect consistent with old inferior ID, LVEF 26%. DUE TO LV DYSFUNCTION, diltiazem was d/c and he was d/c home on metoprolol, Digoxin and Amiodarone as well as Lisinopril, Furosemide and Mag. Was started on Xarelto for anticoagulation. Tolerating well. He has no prior history of an arrhythmia before this most recent dx. No known CAD, prior ID, valvular heart disease, TIA, CVA. Has has [...] coronary artery disease. Dilated left ventricle with lrnsbyor-ov-hvyyds left ventricular systolic dysfunction. (Had LAD with [...] ischemia, fixed defect consistent with old inferior ID, LVEF 26%. 01/29/19 TDM-Negative stress test for ischemia. Fixed defect consistent with old infarction in inferior area. Severe LV systolic dysfunction. LVEF 26%. Had CATH done in 02/25/19 revealed no significant coronary artery disease. Dilated left ventricle with vaartjly-cm-ejojoy left ventricular systolic dysfunction. (Had LAD with minimal irregularity distally, 40% narrowing.) 12/30/18 SOY DUP: no lower extremity deep venous thrombosis bilaterally 12/29/18 CHEST ONE VIEW: mild bibasilar atelctasis. 12/29/18 CTA: no large central pulmonary embolism. evaluation of lower lobe peripheral pulmonary arteries limited by motion. moderate bilateral pleural effusions. Groundglass opacities in the lower lobes, most likely atelectasis. 12/30/18 SOY DUP: no lower extremity deep venous thrombosis bilaterally 12/29/18 CHEST ONE VIEW: mild bibasilar atelctasis. Tacho hernandez [place] - [facility] 03/11/2019 16:35:35
== END 2025-01-13 07:27 | disposition home or self-care (01) ==
PROVIDERS: PCP Family Medicine Adolescent Medicine; Visit Provider Family Medicine
DX: R11.0 Nausea (principal)
CPT/HCPCS: 76705